=== PATIENT | female | born 1950 | race Caucasian/White ===

== ENCOUNTER 2020-08-01 07:37 | Day surgery (SDC) | payer MEDICARE ==
[~2020-08-01] VITALS: Ht 157.5 cm; Wt 106.6 kg
[~2020-08-01 07:37] MED LIST: ASPERCREME LIDO73 ML TOP; BENICAR5 MG PO; CENTRUM SILVER1 EAC5 PO; CITRATE OF MAG300 ML PO; DOCUSATE SODIU100 MG PO; FENOFIBRATE145 MG PO; FLOVENT DISKUS50 MCG INH; FOSAMAX70 MG PO; GLUCOPHAGE500 MG PO; GLUCOSAMINE H1500 MG PO; HYDROCHLOROTHIA25 MG PO; IBUPROFEN200 M1 PO; LOSARTAN-HCTZ1 EACH PO; MILK OF MA400 MG/5 M PO; PRAVACHOL40 MG PO; PRILOSEC OTC20 MG PO; PRILOSEC20 MG PO; TYLENOL EXTRA500 MG PO; WAL-PROFEN200 MG PO; ZYRTEC10 MG PO
--- NOTE | 2020-08-01 10:26 | NUR ---
08/01/20 1026 Justina Rodney 0947 PT TO PACU AWAKE AND ALERT. 1010 PT TAKING SIPS OF SODA TOLERATES WELL, 1015 PT UP TO BATH VIA WHEELCHAIR, PT DRESSED HERSELF, DISCHARGE INSTRUCTIONS GIVEN TO PT SHE VOICED UNDERSTANDING
--- NOTE | 2020-08-01 11:41 | OR ---
[facility] [address] [place], [place] [address] Signed DATE OF OPERATION: 08/01/2020 SURGEON: Nadya Montes MD PREOPERATIVE DIAGNOSES: 1. Adenomas polyps in 2004. 2. Hyperplastic polyps in 2009. 3. Minimal internal hemorrhoids in 2014. POSTOPERATIVE DIAGNOSES: 1. 5 mm polyp at 22 cm. 2. Minimal internal hemorrhoids. PROCEDURE: Colonoscopy with hot biopsy. ESTIMATED BLOOD LOSS: None. 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 She had adenomatous polyps removed in 2004. She came in 2009 and had hyperplastic polyps removed. She then had a colonoscopy in 2014 revealing minimal internal hemorrhoids. She has no family history of colon cancer or polyps. She has no lower GI complaints currently. In the office, I gave her a pamphlet on colonoscopy and she recalls that test quite readily. She understands there is risk including, but not limited to gas bloating, crampy abdominal pain, bleeding, perforation requiring surgery, and missed diagnosis. She also understands the need for IV conscious sedation. She had expressed understanding and wished to proceed. PROCEDURE NOTE: Fátima was taken into our endoscopy suite and placed in the left lateral decubitus position. She was given IV sedation with 5 mg of Versed and 100 mcg of fentanyl. A digital rectal exam was performed and this was unremarkable. The adult colonoscope was introduced and advanced quite readily around into the cecum itself. Her prep was quite excellent. We could easily see the appendiceal orifice and the ileocecal valve. The scope was slowly withdrawn. We took pictures throughout for photodocumentation. We removed a 5 mm polyp back at 22 cm with hot biopsy forceps. The rectum was unremarkable. There was no diverticulosis. Upon retroflexion of scope, she has very minimal internal hemorrhoid tissue. After this, the gas was suctioned out and Electronically Signed By: NADYA MONTES MD 08/01/20 1141 PATIENT NAME: FÁTIMA CHATMAN OPERATIVE REPORT DATE OF : 48 REPORT #: [id number] PHYSICIAN: NADYA MONTES MD PCP: SAY JIM MD REPORT IS CONFIDENTIAL AND NOT TO BE RELEASED WITHOUT AUTHORIZATION [facility] [address] [place] [id number] Signed colonoscope removed. Fátima tolerated the procedure quite well. RECOMMENDATIONS: I will see Fátima back in my office in 7 to 10 days to review her results. She will stay on the 5-year rotation. Nadya Montes MD ALB/MODL /[id number] cc: MD Nadya Townesnd MD Copies: SAY JIM MD, ANDREW L MD ~ Electronically Signed By: NADYA MONTES MD 08/01/20 1141 PATIENT NAME: FÁTIMA CHATMAN OPERATIVE REPORT DATE OF : 48 REPORT #: [id number] PHYSICIAN: NADYA MONTES MD PCP: SAY JIM MD REPORT IS CONFIDENTIAL AND NOT TO BE RELEASED WITHOUT AUTHORIZATION
--- NOTE | 2020-08-05 15:27 | PATH ---
[facility] [address] [place], [place] [address] Signed SPECIMEN(S): A COLON POLYP AT 22 CM SPECIMEN SOURCE: A. COLON POLYP AT 22 CM CLINICAL HISTORY: Colonoscopy. History of colon polyps. MICROSCOPIC DESCRIPTION: Histologic sections of all submitted blocks are examined by light microscopy. These findings, together with the gross examination, support the pathologic diagnosis. FINAL PATHOLOGIC DIAGNOSIS: Colon, polyp at 22 cm, polypectomy: - Fragments of tubular adenoma. - Negative for high-grade dysplasia or malignancy. NAL:cml:C2NR GROSS DESCRIPTION: The specimen, labeled "LA," and designated on the requisition "colon polyp at 22 cm," is received in formalin and consists of two mayorga soft tissue fragments that measure 0.3 cm in greatest dimension. The specimen is entirely submitted in cassette (A1). AT (under the direct supervision of a pathologist) The Gross Description was prepared using a voice recognition system. The report was reviewed for accuracy; however, sound-alike word errors, addition and/or deletions may occur. If there is any question about this report, please contact Client Services. PERFORMING LABORATORY: The technical component was performed by [employer], [address] [place] [id number] ([employer]: Erika Domínguez MD; CLIA# [id number]). [facility], [address] [address] (CLIA# [id number]). Diagnostician: Tiffany Hope MD Pathologist Electronically Signed 08/05/2020 PATIENT NAME: FÁTIMA CHATMAN PATHOLOGY DATE OF : 48 REPORT #: [id number] PHYSICIAN: LANCE PATHOLOGY PCP: SAY JIM MD REPORT IS CONFIDENTIAL AND NOT TO BE RELEASED WITHOUT AUTHORIZATION [address] [place], [place] [address] Signed Copies: ~ PATIENT NAME: FÁTIMA CHATMAN PATHOLOGY DATE OF : 48 REPORT #: [id number] PHYSICIAN: LANCE PATHOLOGY PCP: SAY JIM MD REPORT IS CONFIDENTIAL AND NOT TO BE RELEASED WITHOUT AUTHORIZATION
== END 2020-08-01 10:21 | disposition home or self-care (01) ==
LOC: OPS 07:37 → DS 07:37 → OPS 09:00 → DS 09:00 → OPS 10:21
PROVIDERS: ATTEND Colon & Rectal Surgery
PROC: 0DBE8ZX Excision of Large Intestine, Via Natural or Artificial Opening Endoscopic, Diagnostic (ICD-10-PCS; principal; 2020-08-01 09:00)
DX: D12.6 Benign neoplasm of colon, unspecified (principal); K64.0 First degree hemorrhoids; I10 Essential (primary) hypertension; J45.909 Unspecified asthma, uncomplicated; E11.9 Type 2 diabetes mellitus without complications; K21.9 Gastro-esophageal reflux disease without esophagitis; M19.90 Unspecified osteoarthritis, unspecified site; E66.9 Obesity, unspecified; Z68.41 Body mass index [BMI] 40.0-44.9, adult; Z86.010 Personal history of colon polyps; Z80.0 Family history of malignant neoplasm of digestive organs; Z79.84 Long term (current) use of oral hypoglycemic drugs; Z88.1 Allergy status to other antibiotic agents; Z88.5 Allergy status to narcotic agent; Z88.8 Allergy status to other drugs, medicaments and biological substances; M81.0 Age-related osteoporosis without current pathological fracture
CPT/HCPCS: 99153; G0500; J2250; J3010; J7121

== ENCOUNTER 2020-08-05 07:29 | Inpatient (IN) | payer OTHER, MEDICARE ==
[~2020-08-05] VITALS: Ht 157.5 cm; Wt 103.0 kg
[~2020-08-05 07:29] MED LIST changes: -ASPERCREME LIDO73 ML TOP; -PRILOSEC20 MG PO; +SALONPAS PAIN118 ML TOP
--- NOTE | 2020-08-05 13:42 | NUR ---
PT ARRIVED IN WHEELCHAIR AND AMBULATED TO BED ON OWN. IN ROOM. RATES PAIN 4\10. STATES IV TYLENOL HELPED .
--- NOTE | 2020-08-05 14:36 | NUR ---
New admit to the floor. Patient alert and oriented x4. Patient NPO at this time. Vital signs are stable. Patient reports abdominal pain and nausea. Patient oriented to room and call light. Patient has no current needs. IV fluids started per order.
--- NOTE | 2020-08-05 15:07 | NUR ---
PT SITTING IN BED. KRISTI FOLEY CHECKING PT IN-PT'S SITTING ON COUCH. PT IS ALERT, ORIENTED AND WAS OCCUPIED WITH KRISTI FOLEY. GAVE BLESSING , WILL CHECK BACK
[2020-08-05] MEDS ORDERED: FENOFIBRATE160 MG PO (15:30)
[2020-08-05] MEDS ORDERED: LOSARTAN POTASS50 MG PO (15:30)
--- NOTE | 2020-08-05 16:10 | CONS ---
[facility] [address] [place], [place] [address] Signed DATE OF CONSULTATION: 08/05/2020 CHIEF COMPLAINT: Left lower quadrant abdominal pain. 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 She had a small 5 mm polyp removed in the sigmoid colon at 22 cm. She talked about having abdominal pain over the weekend. It was a holiday weekend and she did want to come in to the emergency room. She finally decided to come this morning to be evaluated. Her white count is elevated at 19.2 and she does have a temperature of 100.4. She had a CT scan performed and there may be a small perfect air in the sigmoid colon, but there were some air bubbles in a fluid collection involving the small bowel above that area. I was therefore asked to see her as a general surgeon. PAST MEDICAL HISTORY: colonic polyps, internal hemorrhoids, diet-controlled diabetes, hypertension, hyperlipidemia, osteoporosis, asthma, bilateral knee pain, gastroesophageal reflux disease, radicular neuropathy, and obesity. PAST SURGICAL HISTORY: Includes lipoma, tonsils, adenoids, endometrial biopsy, and colonoscopies. SOCIAL HISTORY: She does not smoke or drink. She is a retired registered nurse. She is to Jignesh at [phone]. They live in [place], [place]. Dr. Say Khan is a primary care provider. FAMILY HISTORY: Paternal uncle had colon cancer. Dad had an GA. REVIEW OF SYSTEMS: She had 10 systems reviewed. She told me she has lost 60 pounds and therefore is off the metformin. ALLERGIES: Vistaril, Vicodin, codeine, gemfibrozil, Zetia, aspartame, erythromycin, statins, hydroxyzine, ezetimibe, Demerol, and hydrocodone. MEDICATIONS: 1. Multivitamin. 2. Cetirizine. 3. Fenofibrate. Electronically Signed By: NADYA MONTES MD 08/05/20 1610 PATIENT NAME: FÁTIMA CHATMAN CONSULTATION DATE OF : 48 REPORT #: [id number] PHYSICIAN: NADYA MONTES MD PCP: SAY KHAN MD REPORT IS CONFIDENTIAL AND NOT TO BE RELEASED WITHOUT AUTHORIZATION [facility] [address] [place], [place] [address] Signed 4. Milk of Magnesia. 5. Prilosec. 6. Tylenol. 7. Aspercreme. 8. Ibuprofen. 9. Losartan. 10. Fosamax. PHYSICAL EXAMINATION: VITAL SIGNS: Her blood pressure is 142/98, heart rate 93, respiratory rate 19. Temperature is 100.4. She is 100% on room air. She is 5 feet 2 inches, 104 kg. GENERAL: Fátima is a 70-year-old female, sitting on her hospital bed. LUNGS: Clear to auscultation. HEART: Regular rate and rhythm without murmurs. We had her lay back in the supine position. ABDOMEN: Obese, but soft. She does have some tenderness in the left lower quadrant, but she seemed to have tenderness around the xiphoid area as well and also, in the right lower quadrant. LABORATORY DATA: Her white blood cell count is 19.2, hemoglobin 14, neutrophils 79. Her BUN is 14, creatinine 0.63, glucose 155. Liver function tests are negative. Blood cultures are pending. Her EKGs pending. COVID test will be pending; however, she had negative COVID test several days prior to her colonoscopy. RADIOGRAPHIC STUDIES: A CT scan is reviewed with myself and the radiologist. The sigmoid colon does not appear to be particularly concerning. There may be a small bubble air there next to it and then above that there is small fluid collection with some air bubbles as well, that small bowel is a bit inflamed. 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 It may have sealed by now, but she certainly has some fluid collection, some air bubbles there above that in the small bowel area. I reviewed all this with her and her in detail. She certainly could be taken to surgery and explored and normally a small polypectomy site can simply be oversewn. This gently would not require resection necessary. She told me she is afraid to have surgery because of her weight and her diabetes and she is afraid she will not heal well. She knows that she needed a colostomy. She has quite a thick abdominal wall. She wants to be admitted 1st with some IV antibiotics and made n.p.o. on IV fluids and see how she does. We are going to have to watch her close and if she gets any worse, certainly we would have to take her to surgery. She and her have expressed understanding and wished to proceed as Electronically Signed By: NADYA MONTES MD 08/05/20 2397 PATIENT NAME: FÁTIMA CHATMAN CONSULTATION DATE OF : 48 REPORT #: [id number] PHYSICIAN: NADYA MONTES MD PCP: SAY KHAN MD REPORT IS CONFIDENTIAL AND NOT TO BE RELEASED WITHOUT AUTHORIZATION [facility] [address] [place] [address] Signed above. Nadya Montes MD ALB/MODL /[id number] cc: MD Nadya Townsend MD Chart Filed Incomplete Copies: SAY KHAN MD, ANDREW L MD CHART FILED INCOMPLETE ~ Electronically Signed By: NADYA MONTES MD 08/05/20 1610 PATIENT NAME: COMPAFÁTIMA REED CONSULTATION DATE OF : 48 REPORT #: [id number] PHYSICIAN: NADYA MONTES MD PCP: SAY KHAN MD REPORT IS CONFIDENTIAL AND NOT TO BE RELEASED WITHOUT AUTHORIZATION
--- NOTE | 2020-08-05 18:39 | NUR ---
Dilaudid 0.5mg IVP admin for reports of 7/10 abd pain.
--- NOTE | 2020-08-05 19:30 | NUR ---
SHIFT REPORT FROM NURSE FOLEY. PT IN BED, DROWSY; STATES THAT DILAUDID IS CAUSING SOME DROWSINESS BUT IS HELPING WITH SOME OF THE PAIN IN HER BACK. PT DENIES NEEDS AT THIS TIME. CALL LIGHT WITHIN REACH, PT'S IN ROOM.
--- NOTE | 2020-08-05 20:09 | NUR ---
CALL LIGHT ANSWERED. SBA TO THE BATHROOM AND BACK TO BED. NO OTHER NEEDS AT THIS TIME.
--- NOTE | 2020-08-05 21:45 | NUR ---
IN ROOM FOR ASSESSMENT. PT UP TO TOILET TO VOID. SCANT URINE OUTPUT. TEMP ORALLY IS 101.1; PRN TYLENOL SUPP ADMINISTERED AT THIS TIME. VS OTHERWISE STABLE. BOWEL TONES ACTIVE, LUNG SOUNDS CLEAR, NO EDEMA NOTED. IVF INFUSING PER ORDERS. NO FURTHER NEEDS AT THIS TIME. CALL LIGHT WITHIN REACH.
--- NOTE | 2020-08-05 22:30 | NUR ---
RECHECK TEMP ORALLY 99.5.
--- NOTE | 2020-08-05 23:20 | NUR ---
IV PUMP ALARMING; AIR IN LINE; PROBLEM RESOLVED. PT REPORTS STINGING AT IV SITE. UPON INSPECTION, IV ON R FA HAS INFILTRATED. THIS IV WAS REMOVED AT THIS TIME. PT REPORTS NO FURTHER NEEDS AT THIS TIME. CALL LIGHT WITHIN REACH.
--- NOTE | 2020-08-06 01:40 | NUR ---
CHECKED ON PT; PT APPEARS TO BE SLEEPING. CALL LIGHT WITHIN REACH.
--- NOTE | 2020-08-06 02:10 | NUR ---
IN ROOM FOR 0200 MEDS AND VITALS. PT REPORTS THE URGE TO VOID. SBA TO TOILET. SCANT URINE OUTPUT IN HAT. POTENTIAL FOR URINE MISSING HAT. SECOND HAT PLACED IN TOILET. PT STATES THAT SHE DOES NOT FEEL ESPECIALLY FULL BLADDER AT THIS TIME. THIS RN OFFERED TO BLADDER SCAN PT TO CHECK FOR URINE RETENTION, PT DECLINES AT THIS TIME AND CHOOSES TO "GIVE IT MORE TIME" TO URINATE MORE THERE IS NOT GREAT PRESSURE IN HER BLADDER AT THIS TIME.
--- NOTE | 2020-08-06 05:52 | NUR ---
IN ROOM FOR MORNING MEDS AND ASSESSMENT. PT HAD BEEN UP TO TOILET TO VOID. LIQUID BM NOTED, 80ML CONCENTRATED URINE. URINE OUTPUT IS NOT QS THIS SHIFT; BLADDER SCAN PERFORMED; 40ML IN BLADDER. LUNG SOUNDS CLEAR, BOWEL TONES HYPOACTIVE. NO NEW EDEMA NOTED. PT REQUESTS IV TYLENOL IF POSSIBLE FOR HER CHRONIC BACK PAIN; WILL SPEAK TO DR MONTES ABOUT THIS.
--- NOTE | 2020-08-06 08:26 | NUR ---
IN TO GIVE PT IV MEDICATIONS AND COMPLETE ASSESSMENT. PT UP TO BATHROOM INDEPENDENTLY X2 WHILE IN ROOM, MEDIUM SIZED LOOSE BROWN STOOLS BOTH TIMES. PT URINE OUTPUT HAS DECREASED. NOC SHIFT RN ADELIA ATTEMPTED TO CONTACT DR MONTES WHO IS IN PROCEDURE. PT BACK IN BED RESTING. REPORTS SHE HAS BEEN UP TO BATHROOM FREQUENTLY. CALL LIGHT IN REACH.
--- NOTE | 2020-08-06 09:00 | NUR ---
Spoke with Josephine, a retired RN. States she lives with her spouse who is also retired.She states she is an active thompson. They live in a house with 3 steps and she has not had any trouble going in or out. She drives. Spouse will assist her if needed. She plans on dc to home and her spouse will yard truck driver her, cook, clean etc. She states she spoke with Dr. Sifuentes this am and the plan at this time is to wait a couple of days to see is wbc decrease and if pain improves. She is not wanting surgery if it is not emergent.
--- NOTE | 2020-08-06 10:00 | NUR ---
IV START ATTEMPTED BY THIS RN, UNSUCCESSFUL. PT IS IN NEED OF ADDITIONAL IV SITE. GETTING IVF, CEFEPIME AND SODIUM PHOSPHATE ORDERED. VILMA IN TO ATTEMPT. PO TYLENOL GIVEN FOR LOW BACK PAIN AND HEADACHE. WILL REASSESS. IN ROOM TO VISIT.
--- NOTE | 2020-08-06 11:54 | EKG ---
[facility] [address] [facility] [place] [address] Signed Normal sinus rhythm Nonspecific ST abnormality Abnormal ECG No previous ECGs available Confirmed by NIDIA VOGT DO ([id number]) on 08/06/2020 11:54:16 AM Electronically Signed By: NIDIA VOGT DO 08/06/20 1154 PATIENT NAME: FÁTIMA CHATMAN Electrocardiogram DATE OF : 48 PHYSICIAN: NIDIA VOGT DO REPORT #: [id number] REPORT IS CONFIDENTIAL AND NOT TO BE RELEASED WITHOUT AUTHORIZATION
--- NOTE | 2020-08-06 12:46 | NUR ---
MED REC COMPLETE
--- NOTE | 2020-08-06 14:00 | NUR ---
PUMP ALARMING, IN TO HANG NEW BAG OF D5 LR, CONTINUING TO INFUSING @ 100 MLS/HR. PT NOW VOIDING QUANTITY SUFFICIENT. INDEPENDENT IN ROOM. PT HAS HAD ANOTHER WATERY LOOSE BM, MEDIUM BROWN. BACK TO BED. STATES PAIN IS MINIMAL AT THIS TIME AND IS NOT BOTHERING HER. CALL LIGHT IN REACH.
--- NOTE | 2020-08-06 14:05 | NUR ---
PATIENT UP TO BATHROOM AND BACK TO BED, IND. VITALS AND I&O'S CHARTED. CALL LIGHT IN REACH. NO FURTHER NEEDS AT THIS TIME.
--- NOTE | 2020-08-06 14:30 | NUR ---
PT IS ASLEEP KRISTI MASSEY REQUESTED I LET PT REST. SHE HAS HAD A ROUGH AM. WILL FOLLOW NEEDED
--- NOTE | 2020-08-06 19:37 | NUR ---
IN ROOM FOR REPORT, PT IS RESTING IN BED AWAKE. SHE DENIES NEEDS AT THIS TIME. CALL LIGHT IS CLOSE AND IV IS INFUSING FINE.
--- NOTE | 2020-08-06 21:13 | NUR ---
IN ROOM TO ASSESS PT AND ADMINSITER MEDICATIONS. PT REPORTS PAIN 4/10 WHICH IS BASELINE FOR HER BACK PAIN. SHE CONTINUES TO HAVE LOOSE STOOL WHICH MAKES IT DIFFICULT TO MEASURE UO. SHE HAS VOIDED TWICE SINCE 7PM. PT DENIES FURTHER NEEDS AT THIS TIME. CALL LIGHT IS CLOSE.
--- NOTE | 2020-08-06 23:06 | NUR ---
PT CALLED FOR WARM BLANKET, SHE DENIES FURTHER NEEDS. CALL LIGHT IS CLOSE.
--- NOTE | 2020-08-07 00:32 | NUR ---
NEW BAG OF IV FLUIDS NOW INFUSING. PT DENIES NEEDS, CALL LIGHT IS CLOSE.
--- NOTE | 2020-08-07 00:52 | NUR ---
RECEIVED REPORT FROM JAMARI BERRY. PATIENT IS RESTING IN BED WITH EYES CLOSED, RR 17. CALL LIGHT IN REACH.
--- NOTE | 2020-08-07 02:51 | NUR ---
PATIENTS SCHEDULED MEDICATIONS GIVEN PER ORDER. PATIENT REPORTS 6/10 PAIN IN HER ABD AND BACK. PATIENT GIVEN PRN TYLENOL PER REQUEST. PATIENT STATED SHE HAS BEEN UP X2 TO THE RESTROOM AND HAS PASSED A LOT OF GAS. PATIENT REPORTS GAS PAIN IN HER ABD. PATIENT DENIES ANY NAUSEA. NO FURTHER NEEDS NOTED. CALL LIGHT IN REACH.
--- NOTE | 2020-08-07 03:59 | NUR ---
PT CALLED, ASKED TO HAS THE BSC PLACED NEAR BEDSIDE TO MINIMIZE NEED TO MOVE IV POLE, PT IS ADLIB IN AND HAS NO FURTHER NEEDS AT THIS TIME
--- NOTE | 2020-08-07 06:53 | NUR ---
PATIENTS VITALS TAKEN AND RECORDED. INTAKE AND OUPUT RECORDED. LEFT UPPER IV ARM INFILTRATED. PATIENT IS RESTING IN BED. PATIENT DENIES ANY PAIN OR NAUSEA. PATIENT DENIES ANY NEEDS. CALL LIGHT IN REACH.
--- NOTE | 2020-08-07 07:30 | NUR ---
LEFT HAND IV INFILTRATED. PICC CONSULT PUT IN BY DR. MONTES PT HAS HAD SEVERAL IVS INFILTRATE SINCE ADMISSION. ZAK ROCKET ASSEMBLY OPERATOR IN TO ATTEMPT NEW IV, ASHLEY. OFFICE MACHINE INSPECTOR NOTIFIED TO ATTEMPT IV FOR TIME BEING UNTIL PICC LINE IS ESTABLISHED. PT STATES ABD/BACK PAIN IS MINIMAL RIGHT NOW. HAS CONTINUED TO BE UP TO BATHROOM FREQUENTLY FOR SMALL LOOSE STOOLS, STATES "IT'S MOSTLY GAS". OOB AND UP IN CHAIR THIS MORNINGS. STATES SHE DID NOT SLEEP WELL LAST NIGHT. CLEAR LIQUID TRAY ORDERED. CALL LIGHT IN REACH.
--- NOTE | 2020-08-07 09:34 | NUR ---
PATIENT UP IN CHAIR, VITALS AND I&OS CHARTED. CALL LIGHT IN WITHIN REACH
--- NOTE | 2020-08-07 10:30 | NUR ---
NEO FRONT OFFICE SUPERVISOR IN TO START IV, SUCCESSFUL ATTEMPT IN R. HAND. IV CEFEPIME INFUSING AND SCHEDULED IV MEDICATIONS GIVEN. PT REPORTING INCREASED BACK PAIN GETTING UP AND DOWN TO BATHROOM. PO TYLENOL GIVEN. PT OOB UP IN CHAIR. NO, BOWEL TONES HYPOACTIVE. LUNG SOUNDS CLEAR. NO OTHER NEEDS AT THIS TIME. IN ROOM. CALL LIGHT IN REACH.
--- NOTE | 2020-08-07 11:52 | NUR ---
PATIENT WAS ADMITTED AT HIGH RISK FOR MALNUTRITION DUE TO RECENT WEIGHT LOSS. SHE STATES SHE HAS LOST 65 LBS ON HER OWN DOING THE KETO DIET FOR THE PAST 1-1.5 YEARS. SHE IS NOW OFF OF METFORMIN. CURRENTLY SHE IS ONLY ON CLEAR LIQUIDS - THIS IS THE 3RD DAY. SHE HAS AN ALLERGY TO ASPARTAME. SHE IS HOPING TO AVOID SURGERY. SHE PREFERS MALTESE BREAKFAST TEA INSTEAD OF DASHA ORANGE PEKOE TEA. WILL CHECK AND SEE IF WE HAVE MALTESE BREAKFAST TEA IN THE KITCHEN. PATIENT IS NOT AT HIGH RISK FOR MALNUTRITION AT THIS TIME. HOPEFULLY HER DIET WILL BE ADVANCED TOMORROW.
--- NOTE | 2020-08-07 13:42 | NUR ---
PICC INSERTION NOTE: ASKED BY DR. MONTES TO ASSESS PATIENT FOR POTENTIAL PICC INSERTION DUE TO POOR IV ACCESS. AFTER REVIEWING THE CHART AND INTERVIEWING THE PATIENT, NO ABSOLUTE CONTRAINDICATIONS WERE IDENTIFIED. PATIENT WAS ABLE TO SIGN THE CONSENT FORM AND ASK QUESTIONS ABOUT PICC INSERTION. PATIENT'S LEFT ARM WAS EVALUATED FIRST USING THE SITE RITE U/S 8, AND THE BASILIC AND CEPHALIC WERE BOTH IDENTIFIED POTENTIAL SITE. USING A 4 FR CATHETER AND THE BASILIC VEIN, IT IS ESTIMATED THAT THE CATHETER WOULD ONLY TAKE UP 25% OF THE VEIN DIAMETER. AFTER FOLLOWING [facility] [place] RECOMMONDED PROCEDURE FOR STERILE PREP, THE PATIENT'S LEFT ARM WAS PREPPED. PATIENT'S BASILIC VEIN WAS DIFFICULT TO ACCESS, BUT WAS ABLE TO OBTAIN IV ACCESS UPON THE 3RD ATTEMPT AND MOVING PROXIMAL UP THE ARM 3-4 CM. GUIDEWIRE WAS THEN ADVANCED INTO THE VEIN WITHOUT DIFFICULTY OR RESISTANCE. THE INTRODUCER WAS THEN ADVANCED. PATIENT WAS MORE PAINFUL THAN I WOULD HAVE LIKED, AND UTILIZATION OF LIDOCAINE WAS OPTIMIZED. PICC LINE WAS THEN ADVANCED THROUGH THE INTRODUCER AND THREADED EASILY. [employer] TIP MAGNET VERIFICATION SYSTEM WAS UTILIZED. THE PICC LINE ORIGINALLY ACTED THOUGH IT WAS TURNING UP TOWARDS HER NECK VEINS, PATIENT WAS ABLE TO HEAR THE "SWOOSH" NOISE OF A SALINE FLUSH. PICC LINE RE-ADVANCED AND THEN TURNED INTO CENTRAL VASCULATURE. CHEST XRAY WAS TAKEN WHICH SHOWED IN IDEAL POSITION BUT MAYBE A LITTLE HIGH. WIRE WAS THEN REMOVED AND FINAL DRESSING PLACED, AND ANOTHER CHEST XRAY WAS TAKEN. BOTH LUMENS OF THE 4 FR PICC WERE FLUSHING WELL AND ASPIRATING BLOOD. EDUCATION MATERIAL WAS LEFT WITH PATIENT ALSO ENCOURAGED TO ASK QUESTIONS AT ANY TIME. 0 CM EXPOSED ON PICC. ARM CIRCUMFERENCE WAS 38 CM. REPORT GIVEN TO KRISTI MASSEY CARING FOR THIS PATIENT.
--- NOTE | 2020-08-07 14:18 | NUR ---
PATIENT IN BED, VITALS AND I&OS CHARTED. CALL LIGHT IN REACH
--- NOTE | 2020-08-07 16:00 | NUR ---
CEFEPIME INFUSING CONCURRENTLY W/ LR IN RIGHT HAND IV. K PHOS INFUSING INTO PICC LINE. BRISK BLOOD RETURN NOTED IN BOTH PORTS ON PICC LINE. PT BACK TO BED FROM CHAIR. UP FREQUENTLY IN ROOM. NOT WANTING TO AMBULATE TOO FAR FROM ROOM FOR FEAR OF NEEDING TO USE TOILET IN A HURRY. FREQUENT USE OF IS DEVICE. CALL LIGHT IN REACH. IN ROOM. BOWEL TONES ARE ACTIVE IN ALL QUADRANTS. NO OTHER NEEDS AT THIS TIME.
--- NOTE | 2020-08-07 19:52 | NUR ---
RECEIVED REPORT FORM DAY SHIFT RN. PATIENT IS RESTING IN BED. PATIENT REPORTS 5/10 PAIN IN HER LOWER BACK. PRN TYLENOL GIVEN FOR PAIN PER ORDER. PATIENT DAVEY ANY FURTHER NEEDS. CALL LIGHT IN REACH.
--- NOTE | 2020-08-07 21:45 | NUR ---
PATIENT IS RESTING IN BED. PATIENT DENIES ANY NAUSEA. PATIENT REPORTS 2/10 PAIN IN HER BACK. PATIENT DENIES THE NEED FOR PAIN MEDICATION AT THIS TIME. PATIENT ASSESMENT COMPLETED. PATIENTS VITALS TAKEN AND RECORDED. INTAKE AND OUPUT RECORDED. PATIENTS SCHEDULED MEDICATIONS GIVEN PER ORDER. IV INFUSSING IN PICC LINE. PATIENT IS ON RA. PATIENTS ABD REMAINS DISTENDED, SOFT BUT TENDER IN PLACES. PATIENT DENIES ANY NEEDS. CALL LIGHT IN REACH.
--- NOTE | 2020-08-07 23:04 | NUR ---
PATIENT IS RESTING IN BED. PATIENT DENIES ANY NEEDS AT THIS TIME. IV ABX INFUSING PER ORDER. NO NEEDS NOTED. CALL LIGHT IN REACH.
--- NOTE | 2020-08-08 00:54 | NUR ---
PATIENT IS UP SITTING ON THE EDGE OF THE BED. PATIENT REPORTS HER STOMACH IS "GASSY". PATIENT GIVEN SEVEN UP PER REQUEST. PATIENT DENIES ANY NAUSEA. CALL LIGHT IN REACH.
--- NOTE | 2020-08-08 02:50 | NUR ---
PATIENT HAS RETURNED TO BED AFTER HAVING LOOSE BM. PATIENTS HAT EMPTIED. PATIENT DENIES ANY NEEDS. CALL LIGHT IN REACH.
--- NOTE | 2020-08-08 04:41 | NUR ---
PATIENTS MORNING MEDICATIONS GIVEN PER ORDER. PATIENT REPORTS A METALLIC TASTE WHILE THE CEFEPIME IS INFUSING. PATIENT ALSO REPORTS INCREASED STOOL WHILE CEFEPIPME IS INFUSING. PATIENT REPORTS NAUSEA. PATIENT GIVEN PRN NAUSEA MEDICATION PER ORDER. PATIENT GIVEN PRN TYLENOL FOR 5/10 BACK PAIN. NO FURTHER NEEDS NOTED. CALL LIGHT IN REACH.
--- NOTE | 2020-08-08 05:31 | NUR ---
LABS DRAWN FROM PICC LINE. AND SENT TO LAB. IV INFUSING AND IV ABX INFUSING PER ORDER. NO FURTHER NEEDS NOTED. CALL LIGHT IN REACH.
--- NOTE | 2020-08-08 07:35 | NUR ---
Spoke with Dr. Sifuentes this am, pt maybe able to dc tomorrow. He will let me know.
--- NOTE | 2020-08-08 08:52 | NUR ---
CEFEPIME INFUSION COMPLETE. K PHOS, D5LR AND MAGNESIUM INFUSING INTO PICC. LOVENOX INJ GIVEN. PT TOLERATING FULL LIQUID DIET MODERATELY WELL. UP TO BSC TO HAVE BM, STOOLS STILL LOOSE. NO ACUTE CHANGES. PASSING GAS AND BOWEL TONES HYPERACTIVE THIS MORNING. AMBULATING IN ROOM FREQUENTLY. STATES SHE WILL AMBULATE IN [place] WHEN HER COMES TO VISIT AT 10 AM. CALL LIGHT IN REACH. NO OTHER NEED AT THIS TIME.
--- NOTE | 2020-08-08 11:15 | NUR ---
PT UP AMBULATING THE HALLS WITH SEVERAL TIMES THIS MORNING. TOLERATING WELL.
--- NOTE | 2020-08-08 12:00 | NUR ---
Spoke with Josephine. She cont. to plan to dc to home tomorrow with her spouse. Denies needs, spouse will drive her and she will pick her meds up at [facility] on the way home, she has rescheduled her covid shot.
--- NOTE | 2020-08-08 13:40 | NUR ---
IN TO HANG IV FLAGYL. PT STILL REPORTING FREQUENT LOOSE STOOLS. UP TO BATHROOM SEVERAL TIMES. STOOLS WATERY BROWN, YELLOW. DENIES PAIN AFTER PO TYLENOL. RESTING BACK IN BED.
--- NOTE | 2020-08-08 18:30 | NUR ---
PT AMBULATING HALLS FREQUENTLY THIS AFTERNOON. CONTINUES TO HAVE EPISODES OF FREQUENT LIQUID STOOLS, STATES 'IT COMES AND GOES'. TOLERATING FULL LIQUID DIET WELL. REPORTS MINIMAL BACK PAIN AFTER TYLENOL. BACK IN BED TO REST. CALL LIGHT IN REACH. INDEPENDENT IN ROOM.
--- NOTE | 2020-08-08 19:51 | NUR ---
PT'S IV PUMP WAS BEEPING, IT IS NOW INFUSING FINE. PT DENIES NEEDS AT THIS TIME. CALL LIGHT IS CLOSE.
--- NOTE | 2020-08-08 19:58 | NUR ---
RECEIVED REPORT FROM DAY SHIFT RN. PATIENT IS RESTING IN BED WATCHING TV. NO NEEDS NOTED. CALL LIGHT IN REACH.
--- NOTE | 2020-08-08 22:05 | NUR ---
PATIENTS IV ABX INFUSING PER ORDER. PATIENT GIVEN PRN TYLENOL FOR 5/10 PAIN IN HER BACK. PATIENT IS SITTING UP AT THE EDGE OF THE BED READING A BOOK. NO FURTHER NEEDS NOTED. CALL LIGHT IN REACH.
--- NOTE | 2020-08-08 22:26 | NUR ---
PATIENT ASSESMENT COMPLETED. PATIENTS VITALS TAKEN AND RECORDED. INTAKE AN OUPUT RECORDED. PATIENTS EVENING MEDICATIONS GIVEN PER ORDER. PATIENTS IV INFUSING PER ORDER. PATIENT DENIES ANY NAUSEA OR ABD PAIN. PATIENT REPORTS 5/10 BACK PAIN. PATIENT DENIES THE NEED FOR ANY PAIN MEDICATION AT THIS TIME. PATIENT STATED "MY ABD IS A LOT SOFTER" DISTENTION IS NOW MILD AND ABD TENDERNESS APPEARS TO BE RESOLVING. PATIENT DENIES ANY NEEDS AT THIS TIME. CALL LIGHT IN REACH.
--- NOTE | 2020-08-08 23:46 | NUR ---
PATIENT IS RESTING IN BED WITH EYES CLOSED, RR 18. CALL LIGHT IN REACH.
--- NOTE | 2020-08-09 03:02 | NUR ---
PATIENTS IV WAS ALERTING STAFF. IV INFUSING PER ORDER. PATIENT AWOKE BRIEFLY. PATIENT DENIES ANY PAIN OR NAUSEA NO NEEDS NOTED. CALL LIGHT IN REACH.
--- NOTE | 2020-08-09 06:00 | NUR ---
PATIENTS MORNING MEDICATIONS GIVEN PER ORDER. PATIENT DENIES ANY PAIN OR NAUSEA. PATIENTS VITALS TAKEN AND RECORDED. INTAKE AND OUPUT RECORDED. PATIENTS BLOOD RAWN FROM PICC FOR LABS. PATIENT TOLERATED ACTIVITY WELL. NO FURTHER NEEDS NOTED. CALL LIGHT IN REACH.
--- NOTE | 2020-08-09 06:01 | NUR ---
PATIENT RESTED WELL FOR PART OF THE SHIFT. PATIENT IS ON A FULL LIQUID DIET AND TOLERATING IT WELL. NO NAUSEA NOTED. PATIENT HAS DENIED ABD PAIN. PATIENT HAS ACTIVE BOWEL TONES. PATIENT HAD X2 SMALL SOFT BMS. PATIENT ENCOURAGE TO COMPLETE IS. PATIENT IS ON RA. PATIENT HAS SCDS WHILE IN BED. PATIENT HAS L ARM PICC LINE THAT IS INFUSING IV FLUIDS PER ORDER. PICC LINE HAS GOOD BLOOD RETURN AND FLUSHES WELL. PATIENT HAS MILD ABD DISTENTION. PATIENT REPORTS PASSING GAS. PATIENT IS AAOX4.
--- NOTE | 2020-08-09 07:20 | NUR ---
Report received from night cleaner RN. Pt resting in bed, awake and alert. IVF infusing WNL. States no needs at this time, will continue plan of care. Call light in reach
--- NOTE | 2020-08-09 07:55 | NUR ---
Scheduled medications administered. Assessment complete, plan of care reviewed, pt agreeable. IVF infusing WNL. PICC WNL. Pt reports no needs at this time
--- NOTE | 2020-08-09 09:30 | NUR ---
Spoke with Josephine. She is hoping to go home today. Denies needs, plans on dc to her home with her spouse. She is awaiting Dr. Sifuentes to finish surgery to visit her.
--- NOTE | 2020-08-09 11:45 | NUR ---
Rounded on patient, resting in bed. Lunch on bedside table, pt states no issues and no needs. Pt states would like to nap, allowed to rest at this time. Call light in reach
--- NOTE | 2020-08-09 12:02 | NUR ---
PT ALERT, ORIENTED AND SUPPORTED BY HER . 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 PT IS DOING MUCH BETTER, HOPES TO DC TODAY.LEFT G.POST AND BLESSING
--- NOTE | 2020-08-09 12:04 | NUR ---
WHEN I ASKED PATIENT IF SHE WOULD LIKE TO TAKE A SHOWER SHE TOLD ME THAT SHE ALREADY DID HER OWN COMPLETE BED BATH AND AM CARE.
--- NOTE | 2020-08-09 12:07 | NUR ---
WHEN I WENT IN TO HER VITALS PATIENT TOLD ME SHE ALREADY DID HER OWN BED BATH. SHE ALSO WHAT TO WAIT TO TAKE A SHOWER WHEN SHE GETS TO GO HOME SOMETIME TODAY.
[2020-08-09] MEDS ORDERED: AUGMENTIN 875-1 EACH PO (13:05)
[2020-08-09] MEDS ORDERED: FLAGYL500 MG PO (13:06)
--- NOTE | 2020-08-09 13:30 | NUR ---
PICC DISCONTINUED, 45 CM AT TIP, CATHETER INTACT. PT TOLERATED WELL. PRESSURE DRESSING APPLIED. PT EDUCATED REGARDING REMOVAL AND SITE CARE. PT RESTING IN BED, CALL LIGHT IN REACH. WILL CONT TO MONITOR
--- NOTE | 2020-08-09 14:36 | NUR ---
pt discharged to home via wheelchair with belongings in hand. Pt education provided, all questions answered. Pt to drive pt home. No further requests, F/U appointment scheduled and verified with pt.
--- NOTE | 2020-08-09 16:46 | DS ---
[facility] [address], [place] [address] Signed ADMISSION DATE: 08/05/2020 DISCHARGE DATE: 08/09/2020 FINAL DIAGNOSES: Sigmoid colon perforation at 22 cm, status post hot biopsy polypectomy. PROCEDURES: CT scan of abdomen and pelvis. 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 She had a small adenomatous polyp removed at 22 cm in the sigmoid colon with hot biopsy forceps. She had developed pain in the left lower quadrant, but stayed home over the holiday weekend. She finally presented on Wednesday to the emergency room. She certainly was tender, but more so in the subxiphoid and right upper quadrant areas. Less so in the left lower quadrant. White count was elevated. A CT scan showed a small bubble air next to the sigmoid colon, but then a small fluid collection with some air bubbles underneath the small bowel just above this area. Of course, the small bowel was secondarily inflamed. I have been asked to see her as a general surgeon building energy consultant and the fact that I did her colonoscopy. HOSPITAL COURSE: I met with Fátima and her , Sandra in the ER. We had a long discussion regarding her current findings. It had been four days and she was not tremendously ill. Fátima wanted to proceed on a conservative basis. She was admitted with cefepime and Flagyl. She actually did very well. Within 24 hours or so, her fevers have abated and her white count returned to normal. She felt that cefepime was causing a taste in her mouth and resulting in diarrhea. We switched over the Zosyn and Flagyl and she has tolerated that very nicely. She is up to a soft low-fiber diet. Her stools started to become a little more formed. All the abdominal pain is completely gone. She has not had any fever in three days. Abdomen is obese, but completely soft in that no tenderness whatsoever. We did have to place a PICC line for Fátima due to her lack of peripheral IV access while she was here. That will be discontinued just prior to discharge to home. Given her progress in, to go home today and to continue on Augmentin and Flagyl. DISCHARGE PLANS AND MEDICATIONS: Fátima will be discharged to home with Augmentin 875 mg one tablet p.o. b.i.d. for 10 days. We will give Flagyl 500 mg one tablet p.o. t.i.d. for 10 days. Consequently, she will have 15 days of antibiotics. She can resume all her chronic medications at home including milk of magnesia p.r.n. for constipation. She is welcome to use ibuprofen or Tylenol for pain. She generally avoids narcotics. She will continue on a soft Electronically Signed By: NADYA MONTES MD 08/09/20 1646 PATIENT NAME: FÁTIMA CHATMAN DISCHARGE SUMMARY DATE OF : 48 REPORT #: [id number] PHYSICIAN: NADYA MONTES MD PCP: SAY JIM MD REPORT IS CONFIDENTIAL AND NOT TO BE RELEASED WITHOUT AUTHORIZATION [facility] [address] [place] [id number] Signed low-fiber diet. She can perform her activities of daily living including walking up and down stairs and showering and bathing as usual. She should not engage in any heavy pushing, pulling, or lifting over about 20 pounds. If she would have resumption of her symptoms and pain, she needs to call me at the office immediately or come back to the emergency room. Otherwise, we are going to see Fátima in the office in about 7 to 10 days for followup. She has expressed understanding and agrees to above plan. Nadya Montes MD ALB/MODL /[id number] cc: MD Nadya Townsend MD Copies: SAY JIM MD, ANDREW L MD ~ Electronically Signed By: NADYA MONTES MD 08/09/20 1646 PATIENT NAME: FÁTIMA CHATMAN DISCHARGE SUMMARY DATE OF : 48 REPORT #: [id number] PHYSICIAN: NADYA MONTES MD PCP: SAY JIM MD REPORT IS CONFIDENTIAL AND NOT TO BE RELEASED WITHOUT AUTHORIZATION
== END 2020-08-09 14:36 | disposition home or self-care (01) | DRG 920 ==
LOC: ED 07:29 → MS 12:56
PROVIDERS: ADMIT Colon & Rectal Surgery; ATTEND Colon & Rectal Surgery
PROC: 02HV33Z Insertion of Infusion Device into Superior Vena Cava, Percutaneous Approach (ICD-10-PCS; principal; 2020-08-07 12:11)
DX: K91.71 Accidental puncture and laceration of a digestive system organ or structure during a digestive system procedure (principal); K52.1 Toxic gastroenteritis and colitis; Z68.41 Body mass index [BMI] 40.0-44.9, adult; Z20.822 Contact with and (suspected) exposure to COVID-19; E11.9 Type 2 diabetes mellitus without complications; I10 Essential (primary) hypertension; E78.5 Hyperlipidemia, unspecified; M81.0 Age-related osteoporosis without current pathological fracture; J45.909 Unspecified asthma, uncomplicated; K21.9 Gastro-esophageal reflux disease without esophagitis; E66.9 Obesity, unspecified; M25.562 Pain in left knee; E87.6 Hypokalemia; E83.39 Other disorders of phosphorus metabolism; E83.42 Hypomagnesemia; M25.561 Pain in right knee; M54.10 Radiculopathy, site unspecified; Y84.8 Other medical procedures as the cause of abnormal reaction of the patient, or of later complication, without mention of misadventure at the time of the procedure; T36.1X5A Adverse effect of cephalosporins and other beta-lactam antibiotics, initial encounter; Y73.0 Diagnostic and monitoring gastroenterology and urology devices associated with adverse incidents; Y92.239 Unspecified place in hospital as the place of occurrence of the external cause; Z86.010 Personal history of colon polyps; Z88.8 Allergy status to other drugs, medicaments and biological substances; Z88.5 Allergy status to narcotic agent; Z88.1 Allergy status to other antibiotic agents; Z79.899 Other long term (current) drug therapy; Z79.83 Long term (current) use of bisphosphonates
CPT/HCPCS: 36415; 36569; 71045; 74022; 74177; 80048; 80053; 81001; 83605; 83690; 83735; 84100; 84134; 85025; 87040; 93005; 93010; 94760; 96375; 99285-25; C1751; C9113; C9803; J0131; J0692; J1170; J1650; J2270; J2405; J2543; J3475; J7030; J7060; J7121; Q9967; U0003

== ENCOUNTER 2021-03-02 07:53 | Observation (INO) | payer MEDICARE ==
[~2021-03-02] VITALS: Ht 157.5 cm; Wt 101.1 kg
[~2021-03-02 07:53] MED LIST changes: +AUGMENTIN 875-1 EACH PO; +FENOFIBRATE160 MG PO; +FLAGYL500 MG PO; +LOSARTAN POTASS50 MG PO
--- NOTE | 2021-03-02 14:20 | NUR ---
Pt arrives to med/surg unit via stretcher with at bedside. Admission and assessment complete. VSS. Pt ambulates to bathroom with SBA to void. Pt reports slight but tolerable pain in RUQ (2/10) and denies need for PRN medication at this time. IVF infusing WNL. Warm blankets provided, oriented to call light system, no needs at this time.
[2021-03-02] MEDS ORDERED: CALCIUM + VITA1 EACH PO (14:28)
--- NOTE | 2021-03-02 14:29 | NUR ---
medications reconciled using pharmacy records and patient interview
--- NOTE | 2021-03-02 15:15 | NUR ---
Rounded on patient who denies pain, nausea. She states she is cold, warm blankets provided. IVF infusing WNL. Oral swabs provided at bedside. No other needs at this time, call light in reach.
--- NOTE | 2021-03-02 20:20 | NUR ---
PATIENT CONTINUES TO HAVE SOME NAUSEA, BUT DOES NOT WANT MEDICATED AT THIS TIME, DENIES THE NEED FOR ANYMORE PAIN MEDICATION AT THIS TIME. PM ASSESSMENT COMPLETE AND PATIENT IS ESSENTIALLY INDEPENDENT IN THE ROOM. PATIENT REMAINS NPO. WILL CALL TO SEE IF PATIENT CAN HAVE ICE CHIPS UNTIL MIDNIGHT AND SEE WHAT THE PLAN IS FOR SURGERY TOMORROW. CALL LIGHT IS IN REACH NO OTHER CARE NEEDS AT THIS TIME.
--- NOTE | 2021-03-02 20:37 | NUR ---
CALLED TO SEE IF PATIENT COULD HAVE ICE CHIPS SHE HAS NO EATEN IN A COUPLE DAYS. SAID ICE CHIPS ARE OK FOR NOW AND THAT HE IS ON HIS WAY UP TO THE HOSPITAL TO SEE THE PATIENT. ICE CHIPS GIVEN TO THE PATIENT AND PATIENT IS PAIN FREE AT THIS TIME. CALL LIGHT IS IN REACH.
--- NOTE | 2021-03-02 22:15 | NUR ---
PATIENT GIVEN TYLENOL FOR 5/10 LOW CHRONIC BACK PAIN. PATIENT HAD NO OTHER REQUESTS AT THIS TIME. CALL LIGHT IS IN REACH.
--- NOTE | 2021-03-02 22:32 | NUR ---
LR BOLUS STARTED BIRDIE WAS JUST ORDERED BY . 4MG IV ZOFRAN GIVEN FOR NAUSEA AND ANTIBIOTC STARTED. PATIENT HAS NO OTHER NEEDS AT THIS TIME. CALL LIGHT IS IN REACH.
--- NOTE | 2021-03-02 22:34 | NUR ---
PATIENT PLACED ON ORDERED TELE AND PULSE OX. HR=IN THE 80'S WITH O2 SAT OF 95% ON RA. PATIENT HAS NO OTHER NEEDS AT THIS TIME. CALL LIGHT IS IN REACH.
--- NOTE | 2021-03-02 23:06 | NUR ---
PATIENT'S PM IV ANTIBIOTIC HAS INFUSED AND NAUSEA IS IMPROVING AFTER IV ZOFRAN. PATIENT HAS SIGNED SURGICAL CONSENT WITNESSED BY THIS RN. PATIENT'S DECLINES PUTTING ON SCD'S UNTIL THE MORNING. PATIENT'S CALL LIGHT IS IN REACH. PATIENT HAS VOIDED AGAIN, BUT MISSED THE HAT IN THE TOILET. CALL LIGHT IS IN REACH AND PATIENT HAS NO OTHER CARE NEEDS AT THIS TIME.
--- NOTE | 2021-03-03 01:35 | NUR ---
PATIENT'S RUQ AND EPIGASTRIC PAIN HAS RETURNED AT 7/10 HEAVY ACHE. PATIENT PREMEDICATED WITH 8MG IV ZOFRAN SHE WAS EXTREMELY NAUSEATED AFTER THE LST MORPHINE. 30MG TORADOL SIVP GIVEN FOLLOWED BY 4MG SIVP MORPHINE. PATIENT LAYING DOWN TRYING TO RELAX. WILL CHECK BACK WITH PATIENT SHORTLY. CALL LIGHT IS IN REACH.
--- NOTE | 2021-03-03 02:32 | NUR ---
PATIENT'S RUQ AND BACK PAIN IS GONE, JUST SOME EPIGASTRIC DISCOMFORT LEFT. PATIENT DID NO GET NAUSEATED FROM THE 4MG SIVP MORPHINE, SO PREMEDICATING WITH ZOFRAN WORKED. PATIENT RESTING QUIETLY ON HER LEFT SIDE IN BED NOW AND PATIENT FELT A BIT COLD SO 2 WARM BLANKETS WERE GIVEN. CALL LIGHT IS IN REACH.
--- NOTE | 2021-03-03 04:30 | NUR ---
PATIENT IS RESTING QUIETLY WITH A LITE SNORE, RESPIRATIONS ARE REGULAR AND EVEN, EYES CLOSED, ON HER LEFT SIDE, O2 SATS=93% ON RA, AND HR=80'S PER TELE. PATIENT HAS NO CURRENT CARE NEEDS. CALL LIGHT IS IN REACH.
--- NOTE | 2021-03-03 05:47 | NUR ---
PATIENT HAS BEEN ABLE TO GET A FEW HOURS SLEEP. AM VS AND I+O DONE ALONG WITH AM ASSESSMENT. PATIENT DENIES PAIN AND NAUSEA AT THIS TIME. RT HERE TO DO PREOP EKG AND LAB JUST LEFT FOR AM LABS. PATIENT REMAINS NPO. AM ANTIBIOTICS GOING. PATIENT HAS NO OTHER CARE NEEDS AT THIS TIME. CALL LIGHT IS IN REACH.
--- NOTE | 2021-03-03 07:05 | NUR ---
Report received from Goran BERRY. Pt resting in bed, tele #[address], sinus rhythym, IVF infusing WNL. No needs at this time, will continue plan of care
--- NOTE | 2021-03-03 08:00 | NUR ---
PT AWAKE AND SITTING ON EDGE OF BED. PT REFUSES CHAIR. WHITE BOARD UPDATED, CALL LIGHT WITHIN REACH. NO FURTHER NEEDS AT THIS TIME.
--- NOTE | 2021-03-03 08:50 | NUR ---
Scheduled medications administered. Pt denies pain or nausea at this time. This RN asks patient again if she would like to shower, she declines. She states she would like to brush her teeth, change her gown, this RN assists. She then states she "cannot take a shower with her telemetry on so needs it off first". This RN clarifies if patient would or would not like a shower and she states no. She reports wanting to take her gown off and then states she will wait until her presurgical wipedown. She then takes her gown off and puts it back on. This RN asks patient if she has other needs and she says no. Call light in reach, will check in shortly.
--- NOTE | 2021-03-03 09:30 | NUR ---
It was my pleasure to round with Josephine ibarra moring and visit with her regarding her care while here at [facility]. Juani states that he care has been fine. She states that her pain has been well controlled, and adds "Goran went out of his way last night to help get my pain under control." She feels that her room has been kept clean, and she answers to the affirmative when asked if the nurses are explaining her medications, and the side effects of the medications to her. Josephine explained that she does have help at home when she goes home after her surgery. She has no concerns about help at home or being able to acquire medications, food, etc. She also states that Dr. Malik has been in to see her this morning, she explained to me that she understood that she would most likely spend the night in the hospital again tonight since she was not going to surgery until around 1300 today. She denies questions or concerns, and expresses no needs at this time.
--- NOTE | 2021-03-03 09:49 | NUR ---
PATIENT SITTING ON EDGE OF BED TALKING ON PHONE. VITALS AND I&O'S CHARTED. CALL LIGHT IN REACH. NO FURTHER NEEDS AT THIS TIME.
--- NOTE | 2021-03-03 10:20 | NUR ---
Call light answered, pt states feeling nauseated and painful at 4/10 in RUQ. IV toradol and zofran administered. Pt is restless and has difficulty giving clear answers to this RN's questions. Allowed to rest at this time. Call light in reach, Jignesh at bedside.
--- NOTE | 2021-03-03 11:02 | NUR ---
Call light answered, IV pump alarming, error resolved, no further needs
--- NOTE | 2021-03-03 15:40 | NUR ---
03/03/21 1540 Jhoana Boston 1520 PT ARRIVED IN PACU NON RESPONSIVE TO NOXIOUS STIMULI WITH OPA IN PLACE. BLOOD SUGAR 151 ON ARRIVAL. 1537 PT REACTIVE. OPA REMOVED. 1540 RESTING. REU.
--- NOTE | 2021-03-03 16:20 | NUR ---
Pt returns from surgery via stretcher. Drowsy but oriented. On room air, SPO2 94%. VSS. Lap sites x3 to ABD C/D/I with gauze/tape. PREETI to RLQ with serosanguinous drainage. IVF infusing WNL. Pt states tolerable pain/nausea level. Warm blankets provided, HOB elevated, call light in reach.
--- NOTE | 2021-03-03 18:29 | NUR ---
PATIENT TO EDGE OF BED TO SIT UP, TOLERATED WELL. IN ROOM. VITALS CHARTED. CALL LIGHT IN REACH. NO FURTHER NEEDS AT THIS TIME.
--- NOTE | 2021-03-03 18:51 | NUR ---
Pt requests PRN tylenol for 4/10 pain to RUQ. Lap site to umbilicus small amount drainage, steri strips wet and come off, new applied and 2x2 gauze applied for reinforcement. Pt ambulates to BR with SBA. Gown changed. IVF infusing WNL. VSS, A+O.
--- NOTE | 2021-03-03 19:25 | NUR ---
VS COMPLETE. PT STATED SHE HAD JUST GOTTEN UP TO BATHROOM, LELA WELL. STATED SHE IS LESS SLEEPY THAN WHEN SHE ARRIVED TO FLOOR. LAP SITES UNCHANGED FROM ASSESSMENT PRIOR TO 7PM, COMPLETED BY KRISTI SIMS. DAMARIS DRAIN RUQ WITH SERSANGUINEOUS DRAINAGE
--- NOTE | 2021-03-03 20:20 | NUR ---
PT CALLED PRIOR TO THIS TIME, FOUND HER SITTING ON THE EDGE OF BED, SAID SHE WAS BLEEDING. ASKED WHAT SHE WAS GOING TO DO, SHE SAID GO TO THE BATHROOM. EDUCATED PT THAT WE WOULD WANT TO WALK WITH HER TO BATHROOM AT THIS TIME, FOR HER SAFETY. SHE LAID DOWN, THE UMBILICUS AREA, THE GAUZE WAS LIFTED. SHE SAID THAT THEY HAD JUST "CHANGED IT", BUT NO OBVIOUS BLEEDING. REINFORCED DRESSING. PT THEN AMBULATED TO BATHROOM, NEEDED REMINDERS TO TAKE THE IV POLE, WAS UNABLE TO VOID, BACK TO BED AFTER BED WAS CHANGED. SMALL AMOUNT BLEEDING ON THE BED. REPORTED TO PT RN, WELL PAIN MED REQUESTED.
--- NOTE | 2021-03-03 20:34 | NUR ---
PATIENT CALLED AND ABD PAIN/RUQ PAIN FROM SURGICAL SITES HAS INCREASED TO 6/10 AND THE TYLENOL THAT THE PATIENT HAD TAKEN FOR A BACK ACHE IS NOT WORKING. 2MG PO DILAUDID GIVEN AND 30MG IV TORADOL SIVP GIVEN. PATIENT RESTING BACK IN BED. PM ASSESSMENT COMPLETE. ALL 3 LAP SITES HAVE STERISTRIPS IN PLACE WITH SOME DRIED BLOOD ON IT, A LITTLE MOIST AT THE UMBILICAL SITE. RIGHT ABD DAMARIS DRAINAGE SANGUINOUS, EMPTIED, AND TUBING STRIPPED. PATIENT SAYS SHE IS COLD AND WARM BLANKETS GIVEN AND ROOM TEMP TURNED UP. PATIENT HAS NO OTHER NEEDS AT THIS TIME CALL LIGHT IS IN REACH.
--- NOTE | 2021-03-03 21:51 | NUR ---
PATIENT SAYS HER ABD PAIN REMAINS THE SAME AND SHE IS NOW NAUSEATED. 8MG ZOFRAN SIVP AND 4MG MORPHINE SIVP GIVEN. PATIENT UP TO THE BATHROOM AND BACK TO BED 1PSBA. INFORMED PATIENT THE BED ALARM WAS BEING TURNED ON SINCE SHE HAS HAD 2 NARCOTICS NOW AND WE WANT TO MAKE SURE SHE REMAINS SAFE. PATIENT VERBALIZED UNDERSTANDING. CALL LIGHT IS IN PLACE, LIGHTS TURNED DOWN, ICE WATER REFILLED, AND BED ALARM ON.
--- NOTE | 2021-03-03 22:20 | NUR ---
PATIENT CALLED AND SAID HER RIGHT ARM AT THE IV SITE WAS ITCHING. KRISTI JORGE RESPONDED, TOOK OF EXCESS TAPE, APPLIED A COOL MOIST CLOTH, THEN PUT ON SOME LOTION. PATIENT SAYS HER ARM FEELS FINE NOW. CALL LIGHT IS IN REACH.
--- NOTE | 2021-03-03 22:51 | NUR ---
CHECKED IN ON PATIENT AND SHE SAYS HER NAUSEA AND PAIN ARE BOTH GONE AT THIS TIME. PATIENT HAD NO OTHER CARE NEEDS AT THIS TIME AND WANTS TO TRY AND GET SOME SLEEP. LIGHTS ARE DOWN AND CALL LIGHT IS IN REACH.
--- NOTE | 2021-03-03 23:23 | NUR ---
PATIENT RESTING QUIETLY IN SEMI-FOWLERS POSITION, EYES CLOSED, RESPIRATIONS ARE REGULAR AND EVEN, AND CALL LIGHT IS IN REACH. NO NOTED CARE NEEDS AT THIS TIME.
--- NOTE | 2021-03-04 01:38 | NUR ---
PATIENT CALLED TO USE THE RESTROOM. 1PSBA TO THE RESTEROOM AND BACK TO BED. 1ST AM ASSESSMENT COMPLETE. BOWEL TONES STILL VERY HYPOACTIVE THROUGHOUT. PATIENT DENIES NAUSEA AND PAIN AND THIS TIME. PREETI EMPTIED AND TUBING STRIPPED. VS ARE STABLE AND PATIENT WIDE AWAKE NOW. PATIENT DENIES ANY OTHER CARE NEEDS AT THIS TIME. CALL LIGHT IS IN REACH.
--- NOTE | 2021-03-04 03:42 | NUR ---
PATIENT RESTING QUIETLY IN SEMI-FOWLERS POSITION, EYES CLOSED, RESPIRATIONS ARE REGULAR AND EVEN, SCD'S ON, AND CALL LIGHT IS IN REACH.
--- NOTE | 2021-03-04 05:02 | NUR ---
CALL LIGHT ANSWERED. SBA TO RESTROOM. IVF INFUSING WNL.
--- NOTE | 2021-03-04 06:01 | NUR ---
PATIENT HAS DONE WELL THROUGH THE NIGHT. DAMARIS DRAIN IS DRAINING MINIMAL SANGUINOUS DRAINAGE. BOWEL TONES STILL VERY HYPOACTIVE. PATIENT'S PAIN WAS NOT CONTROLLED WITH PO DILAUDID, BUT HAS REMAINED RELIEVED SINCE 10PM WITH ONE DOSE OF 4MG SIVP MORPHINE WITH 8MG PREMEDICATED ZOFRAN. PATIENT DENIES NAUSEA AND PAIN STILL AT THIS TIME. PATIENT HS BEEN AMBULATING TO THE BATHROOM THROUGH THE NIGHT WITH 1PSBA AND DOES WELL. ALL LAP SITE REMAIN COVERED WITH STERISTRIPS AND ARE WELL APPROXIMATED, DAMARIS DRAIN DRESSING CDI. PATIENT SITTING UP ON THE BEDSIDE AT THIS TIME AND HAS NO OTHER REQUESTS. BREAKFAST ORDER TAKEN.
--- NOTE | 2021-03-04 07:20 | NUR ---
Report received from Goran BERRY. Pt resting in bed with eyes closed, even and unlabored respirations, no needs identified. Will continue plan of care.
--- NOTE | 2021-03-04 07:43 | EKG ---
[facility] [address] [facility] [place], [place] [address] Signed Normal sinus rhythm Nonspecific ST abnormality Abnormal ECG When compared with ECG of 05-AUG-2020 12:57, No significant change was found Confirmed by NICHOL GLASS MD ([id number]) on 03/04/2021 7:42:47 AM Electronically Signed By: NICHOL GLASS MD 03/04/21 0743 PATIENT NAME: FÁTIMA CHATMAN Electrocardiogram DATE OF : 48 PHYSICIAN: NICHOL GLASS MD REPORT #: [id number] REPORT IS CONFIDENTIAL AND NOT TO BE RELEASED WITHOUT AUTHORIZATION
--- NOTE | 2021-03-04 08:30 | NUR ---
Scheduled medications administered, PRN tylenol provided, pt sitting up to chair and finished with breakfast. VSS, A+O. Lap sites x3 WNL, PREETI drain WNL. Discussed plan of care, pt agreeable. Call light in reach
--- NOTE | 2021-03-04 10:26 | NUR ---
PATIENT UP TO BATHROOM AND BACK TO BED, 1PA. VITALS AND I&O'S CHARTED. LINENS CHANGED EARLIER. CALL LIGHT IN REACH. NO FURTHER NEEDS AT THIS TIME.
--- NOTE | 2021-03-04 11:40 | NUR ---
Spoke with Josephine. States she is able to get up and walk, but is painful. States she is painful when walks and Dilauded did not help. This is surprising. She is sitting at bedside eating grilled cheese and [place] fried Thinks she will be able to dc to home today, awaiting visit from Dr. Tellez. Let her know I will tell her nurse about her pain. Spoke with Tash and brandie states pt did not take Dilauded and refused it. She then gave her Tylenol.
--- NOTE | 2021-03-04 13:38 | NUR ---
PT IS ALERT, ORIENTED AND SUPPORTED BY HER AT . 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 PT DID SAY PAIN IS A 4, WILL PASS ON TO KRISTI SIMS. PT PLANS TO DC TODAY, BUT SAID SHE NEEDS TO SEE DR RICHARDS BEFORE THAT CAN HAPPEN. GAVE BLESSING, WILL FOLLOW NEEDED
--- NOTE | 2021-03-04 14:10 | NUR ---
PT AWAKE IN ROOM. PT AMBULATED THREE LAPS IN THE SANZ WITH . CALL LIGHT WITHIN REACH. NO FURTHER NEEDS AT THIS TIME.
[2021-03-04] MEDS ORDERED: ACETAMINOPHEN500 MG PO (14:25)
--- NOTE | 2021-03-04 14:44 | OR ---
[facility] [address], [place] [address] Signed DATE OF OPERATION: 03/03/2021 SURGEON: Jacobo Richards MD PREOPERATIVE DIAGNOSES: 1. Morbid obesity. 2. Acute calculous cholecystitis. POSTOPERATIVE DIAGNOSES: 1. Morbid obesity. 2. Acute calculous cholecystitis. PROCEDURE PERFORMED: Laparoscopic cholecystectomy with intraoperative cholangiogram, prolonged complicated difficult. ANESTHESIA: General endotracheal, Macarena Mendez CRNA and Kasi Kelley CRNA. Local 20 mL of 0.25% Marcaine with epinephrine. INDICATION: This morbidly obese 70-year-old white woman presented to the emergency room after three days of right upper abdominal pain. She is a patient of Dr. Say Khan of [place]. She on evaluation was found to have rather significant tenderness in the right upper abdomen. CT scan and ultrasound were performed, confirming significant findings of acute cholecystitis with thickened gallbladder wall and so on. Notably, her liver enzymes were found to be elevated. Her bilirubin today is 1.9, AST 237, ALT 194, alkaline phosphatase only 85. Her white count has improved from time of admission down from 19.3 to 15.4 now. She has been fluid resuscitated, given intravenous antibiotics, and now is to undergo cholecystectomy preferably by laparoscopic approach. The risks of bleeding, infection, bile duct injury, need for open procedure and other unforeseen complications including possible need for common duct exploration were reviewed in detail. She understands and wished to proceed. FINDINGS: The gallbladder was quite markedly acutely and chronically inflamed. It was very thickened. There were dense omental adhesions to it. Initially, it was thought unlikely to be resectable by laparoscopic approach, but with meticulous care in fair amount of patients, it was able to be done laparoscopically. Cholangiogram was performed showing no sign of obstruction of the duct or anything of that sort. The Electronically Signed By: JACOBO RICHARDS MD 03/04/21 1444 PATIENT NAME: FÁTIMA CHATMAN OPERATIVE REPORT DATE OF : 48 REPORT #: [id number] PHYSICIAN: JACOBO RICHARDS MD PCP: SAY KHAN MD REPORT IS CONFIDENTIAL AND NOT TO BE RELEASED WITHOUT AUTHORIZATION [facility] [address], [place] [address] Signed operation was prolonged, complicated, and difficult. A drain was placed. DESCRIPTION OF PROCEDURE: The patient was brought to the operating room, given a general endotracheal anesthetic. The abdomen was prepared with a chlorhexidine solution and an enormously large abdominal pannus was noted. Infraumbilical incision was made and using an open Mandy cannula technique, the abdomen was entered and pneumoperitoneum was achieved to a level of 14 mmHg of carbon dioxide gas. Intraabdominal inspection showed no sign of ascites, recurrent ascites or carcinomatosis. The liver was obscured from view. It is notable that upon relaxation of the patient at time of the anesthetic induction, the gallbladder could be palpable as a mass in the right upper abdomen. Three additional trocars were placed in usual configuration in the subxiphoid, right midclavicular, and right anterior axillary line. With various manipulations the densely adherent omentum could be freed from the gallbladder, which was quite markedly distended, firm and inflamed. A laparoscopic trocar decompression device was used to drain light green bilious fluid from the gallbladder. This allowed for good decompression of the gallbladder, but the gallbladder wall was quite markedly thickened and rubbery. It was able to be grasped and elevated. The infundibulum was then quite impressive in its extent of inflammation and distorted anatomy but meticulous care and stain on the infundibulum of the gallbladder. The cystic duct could be dissected free ultimately allowing for good delineation of the duct from surrounding structures. A clip was applied across the gallbladder cystic duct junction and a transverse choledochotomy made in the cystic duct. There was no significant egress of bilious fluid from the cystic duct. It was milked in a retrograde fashion showing a bit of debris, but not much. Using an Overton-type cholangiocatheter, intraoperative cholangiography was undertaken. This showed free flow of contrast in the biliary tree with prompt emptying into the duodenum. There was no sign of filling defect. The more proximal common hepatic duct was somewhat obscured and not as well defined, but clearly out of the area of previous dissection. The cystic duct was ultimately triply clipped and divided. The gallbladder was then dissected free in a retrograde fashion. There was a large lymph node in the infundibular area, which was left in situ. Ultimately, gallbladder was dissected free in a retrograde fashion, although entry into the gallbladder was noted and spillage of some small boulder like stones noted. The gallbladder was ultimately excised, placed in the Endobag and extracted through the infraumbilical port site. Reinspection of subhepatic space showed multiple gallstones that had been spilled, all of them completely collected up. Irrigation was undertaken copiously and there were no residual stones. The bed of the gallbladder was secured with electrocautery throughout the course of dissection and additionally so at this point. Some Tisseel fibrin glue was then applied to the raw surface of the liver. There was no sign of bile leak or other problem. Through right-sided trocar site, a 7 mm flat David drain was placed in the subhepatic space and attached to bulb suction. Electronically Signed By: JACOBO RICHARDS MD 03/04/21 1444 PATIENT NAME: FÁTIMA CHATMAN OPERATIVE REPORT DATE OF : 48 REPORT #: [id number] PHYSICIAN: JACOBO RICHARDS MD PCP: SAY KHAN MD REPORT IS CONFIDENTIAL AND NOT TO BE RELEASED WITHOUT AUTHORIZATION [address] [address] Signed There was no sign of bile leak, bleeding, or other problems. Excess irrigation fluid was suctioned free. The drain was secured to the skin with a nylon suture. The trocars were removed and the infraumbilical incision ultimately closed with interrupted 0 Vicryl suture. A 20 mL of 0.25% Marcaine with epinephrine was injected locally. The skin was closed with interrupted 3-0 Vicryl and Steri-Strips were applied. She was ultimately extubated and transferred to the recovery room in good condition having suffered no complications. Sponge, needle, and instruments counts reported as correct x3. The operation was rather prolonged complicated and difficult extending now more than 2 hours, which in many cases would be less than 40 minutes. MD ANA Butler/ERASMO /[id number] cc: MD Debora Townsend MD Copies: SAY KHAN MD, KELLY DEAN MD ~ Electronically Signed By: JACOBO RICHARDS MD 03/04/21 1444 PATIENT NAME: FÁTIMA CHATMAN OPERATIVE REPORT DATE OF : 48 REPORT #: [id number] PHYSICIAN: JACOBO RICHARDS MD PCP: SAY KHAN MD REPORT IS CONFIDENTIAL AND NOT TO BE RELEASED WITHOUT AUTHORIZATION
--- NOTE | 2021-03-04 14:44 | HP ---
[facility] [address] [place], [place] [address] Signed ADMISSION DATE: 03/02/2021 REASON FOR ADMISSION: Acute calculous cholecystitis. HISTORY OF PRESENT ILLNESS: This 70-year-old obese white woman presents to the emergency room after three days of increasing right upper abdominal pain. The patient has a distant history of colonic perforation on colonoscopy in August of this year by Dr. Sifuentes, which was related to hot polypectomy of the sigmoid colon polyp. She was treated without operative intervention. The patient thought given her symptoms that she may be having a "bowel obstruction." Evaluation is undertaken by Dr. Alberts, which included a gallbladder ultrasound as well as a CT scan of the abdomen. This did in fact confirm a thickened gallbladder wall as well as gallstone. There is no evidence of bowel obstruction. Incidentally noted, however, were two small stable bilateral adrenal nodules. She is admitted for further evaluation and care. At present since admission with IV antibiotics, IV fluids and n.p.o. status, she does not feel worsened. She was noted to have had a rather significant right upper abdominal tenderness at the emergency room evaluation. MEDICAL HISTORY: Includes hypertension, seasonal allergies, and lumbar stenosis at L4-L5 and rnv-sgduwog-hszqwxmmy diabetes mellitus. MEDICATIONS: Her home medications include multivitamin, omeprazole, Tylenol, cetirizine (Zyrtec), Methyl Salicylate-Menthol (Salonpas pain relief spray), fenofibrate one tablet daily, losartan one p.o. daily and DSS. ALLERGIES: Her allergies are extensive including alendronate, aspartame, codeine, erythromycin base, hydrocodone, hydroxyzine, statins, gemfibrozil, lisinopril, and ezetimibe. REVIEW OF SYSTEMS: She denies any chest pain or shortness of breath. She has had no dysphagia. No hematemesis. No blood per rectum. Her pain is localized to the right upper abdomen, though she does have some right subscapular pain as well. SOCIAL HISTORY: Electronically Signed By: JACOBO RICHARDS MD 03/04/21 1444 PATIENT NAME: FÁTIMA CHATMAN HISTORY AND PHYSICAL DATE OF : 48 REPORT #: [id number] PHYSICIAN: JACOBO RICHARDS MD PCP: SAY KHAN MD REPORT IS CONFIDENTIAL AND NOT TO BE RELEASED WITHOUT AUTHORIZATION [place] [address] Signed The patient is . Her primary provider is Dr. Say Khan. The patient lives in [facility]. She is a retired nurse from many years ago. PHYSICAL EXAMINATION: GENERAL: A relatively short and obese white woman, who does not look to be toxic. VITAL SIGNS: Temperature is currently 98.7, pulse 96, blood pressure 142/81, O2 saturation 98% on room air. COVID serology is negative at the time of admission, it is noted. NECK: Shows no thyromegaly or cervical adenopathy. Trachea is midline. She has mild dryness of her mucous membranes on oral exam. CHEST: Clear. HEART: Regular without murmur. ABDOMEN: Obese, but generally soft. She has market tenderness in the right subcostal area. The tenderness is enough that I cannot fully define whether there is a mass or not. She does not appear to have ascites. She does have a thick abdominal wall pannus. EXTREMITIES: Show no clubbing, cyanosis, or edema. She does not currently have sequential compression device stockings in place. LABORATORY DATA: Lab studies through the emergency room showed a white count of 19.3, hematocrit 46.6, platelets 276,000. Chem profile was normal. Liver enzymes were normal. Alkaline phosphatase 69, alk ALT 89, AST 93, bilirubin 1.1, magnesium 2.1. The plain abdominal x-ray, ultrasound, and CT scan was reviewed by me in detail. Findings included a gallstone with gallbladder wall thickening and pericholecystic fluid and hepatomegaly and fatty liver. ASSESSMENT: The patient has acute calculous cholecystitis. From my discussion with her, it sounds as though she has had episodic symptoms of the similar type for quite a long time, only worsening in the past three days, and now essentially intolerable. She certainly has marked tenderness in the right upper quadrant consistent with acute calculous cholecystitis. She has no ascites. I have recommended cholecystectomy, preferably by a laparoscopic approach. The risks of bleeding, infection, bile duct injury, need for open procedure and importantly, failure to provide a laparoscopic cholecystectomy. If that were the case, an open cholecystectomy would be recommended. Review of her CT scan shows the right adrenal nodule was 2.9 cm in size and the left 1.4 cm in size. She does not have stigmata of pheochromocytoma or other functioning neuroendocrine type tumor. Electronically Signed By: JACOBO RICHARDS MD 03/04/21 1444 PATIENT NAME: FÁTIMA CHATMAN HISTORY AND PHYSICAL DATE OF : 48 REPORT #: [id number] PHYSICIAN: JACOBO RICHARDS MD PCP: SAY KHAN MD REPORT IS CONFIDENTIAL AND NOT TO BE RELEASED WITHOUT AUTHORIZATION [address] [address] Signed Given the acuity of her situation, I would recommend cholecystectomy promptly, likely tomorrow. We will focus on fluid resuscitation, IV antibiotic administration, and pain control at this point. Special risks of operation in her case were reviewed in detail. She will additionally need an EKG anticipating operation tomorrow. MD ANA Butler/ERASMO /[id number] cc: MD Oliver Townsend MD Kelly Dean Pridgen, MD Copies: SAY KHAN MD, ANDREW L MD PRIDGEN, KELLY DEAN MD ~ Electronically Signed By: JACOBO RICHARDS MD 03/04/21 1444 PATIENT NAME: FÁTIMA CHATMAN HISTORY AND PHYSICAL DATE OF : 48 REPORT #: [id number] PHYSICIAN: JACOBO RICHARDS MD PCP: SAY KHAN MD REPORT IS CONFIDENTIAL AND NOT TO BE RELEASED WITHOUT AUTHORIZATION
--- NOTE | 2021-03-05 00:22 | DS ---
[facility] [address] [place], [place] [address] Signed ADMISSION DATE: 03/02/2021 DISCHARGE DATE: 03/04/2021 REASON FOR ADMISSION: Acute calculous cholecystitis. HISTORY OF PRESENT ILLNESS: This quite morbidly obese 70-year-old white woman (BMI 40.8, 101.1 kg, 5 feet 2 inches tall), presented to the emergency room in the morning of March 02, evaluated by Dr. Alberts. She was found to have exquisite tenderness in the right upper abdomen and evaluation including CT scan, as well as a gallbladder ultrasound, which showed marked thickening in the gallbladder with multiple stones. She was admitted for further evaluation and care. PHYSICAL EXAMINATION: GENERAL: Showed a morbidly obese white woman, who did not look systemically toxic. VITAL SIGNS: On presentation, vital signs showed her blood pressure of 132/58, pulse of 85, and temperature 98.1. NECK: Showed no thyromegaly or cervical adenopathy. Trachea was midline. CHEST: Clear. HEART: Regular, without murmur. ABDOMEN: Quite massively obese with an extremely large abdominal pannus. EXTREMITIES: Show no clubbing, cyanosis, or edema. LAB STUDIES: At admission showed white count of 19.3 and hematocrit 46.6. Chem-profile showed normal electrolytes and creatinine, but bilirubin of 1.1, alkaline phosphatase 93, and ALT 89. Her lipase was noted to be 60. HOSPITAL COURSE: She was admitted, given intravenous fluid resuscitation, IV antibiotic Ancef, and parenteral pain medication. The following morning, March 03, she was noted to have elevated bilirubin of 1.9, AST of 237, ALT of 184, and persistent tenderness in right upper abdomen. She was taken for operation, where she underwent laparoscopic cholecystectomy. Of note, upon anesthesia and with abdominal wall relaxation, a firm palpable mass could be noted in the right upper quadrant consistent with acute calculous cholecystitis as previously suspected. On laparoscopic evaluation, she had a markedly inflamed, distended, chronically and Electronically Signed By: JACOBO RICHARDS MD 03/05/21 0022 PATIENT NAME: FÁTIMA CHATMAN DISCHARGE SUMMARY DATE OF : 48 REPORT #: [id number] PHYSICIAN: JACOBO RICHARDS MD PCP: SAY KHAN MD REPORT IS CONFIDENTIAL AND NOT TO BE RELEASED WITHOUT AUTHORIZATION [facility] [address] [place], [place] [address] Signed acutely inflamed gallbladder with dense omental adhesions. Decompression was undertaken showing light green bilious fluid. Despite my initial impression, with the persistence and care and meticulous dissection, laparoscopic cholecystectomy ultimately could be performed. Cholangiogram performed operation showed no sign of filling defect or anything to account for elevated liver enzymes necessarily. The cholecystectomy went without problem. Given her advanced findings, a drain was placed in subhepatic space. Postoperatively, she did quite remarkably well. Her liver enzymes improved on first postoperative day with bilirubin now 0.6, AST 65, ALT 112, and persistently normal alkaline phosphatase of 79. Additionally, her white count was diminished to 11.9 and hematocrit was 36.2. By the time of discharge, she is ambulating well, tolerating a regular diet as well as oral analgesic, Tylenol and Motrin as needed. She is advised for discharge to avoid lifting more than 20 pounds for the next two weeks. She should walk on a daily basis. She will leave [facility] in place. The drain was placed at operation was removed without sign of bile leak or other problem. FOLLOWUP PLAN: She will return to see me in approximately 4 weeks. Arrangements will be made for that. DISCHARGE DIAGNOSES: 1. Acute calculous cholecystitis (very advanced). 2. Status post laparoscopic cholecystectomy with intraoperative cholangiogram (prolonged, complicated, difficult). 3. Morbid obesity, BMI 40.8. 4. Hypertension. 5. Multiple allergies including statins, HMG-CoA reductase inhibitor, lisinopril, and others. Jacobo Richards MD JM/MODL /[id number] Electronically Signed By: JACOBO RICHARDS MD 03/05/21 0022 PATIENT NAME: FÁTIMA CHATMAN DISCHARGE SUMMARY DATE OF : 48 REPORT #: [id number] PHYSICIAN: JACOBO RICHARDS MD PCP: SAY KHAN MD REPORT IS CONFIDENTIAL AND NOT TO BE RELEASED WITHOUT AUTHORIZATION [facility] [address] [place] [id number] Signed cc: Say Khan MD Copies: SAY KHAN MD ~ Electronically Signed By: JACOBO RICHARDS MD 03/05/21 0022 PATIENT NAME: FÁTIMA CHATMAN DISCHARGE SUMMARY DATE OF : 48 REPORT #: [id number] PHYSICIAN: JACOBO RICHARDS MD PCP: SAY KHAN MD REPORT IS CONFIDENTIAL AND NOT TO BE RELEASED WITHOUT AUTHORIZATION
--- NOTE | 2021-03-05 12:41 | PATH ---
[facility] [address] [facility] [place], [place] [address] Signed SPECIMEN(S): A GALLBLADDER WITH STONES SPECIMEN SOURCE: A. GALLBLADDER WITH STONES CLINICAL HISTORY: Acute calculus cholecystitis. FINAL PATHOLOGIC DIAGNOSIS: Gallbladder, cholecystectomy: - Acute and chronic calculus cholecystitis. BRP:cml:C2NR MICROSCOPIC EXAMINATION: Histologic sections of all submitted blocks are examined by light microscopy. These findings, together with the gross examination, support the pathologic diagnosis. GROSS DESCRIPTION: The specimen, labeled "[place], gallbladder with stones," is received in formalin and consists of Specimen: Previously incised gallbladder. Dimensions: Upon reconstruction, 13.5 x 4.7 x 4.5 cm. Serosa: Mostly fat covered, [place] to brown, with focal areas of johnson exudate. Cystic Duct: 0.4 cm in diameter, occluded by a hard calculus, and the margin is inked blue. Calculi: The specimen container and gallbladder contains multiple hard, yellow to brown, multifaceted to oval calculi from 0.4 up to 1.3 cm in greatest dimension. Mucosa: [place] to dark red, velvety to somewhat trabecular with adherent johnson exudate. Wall thickness: Dark red discolored and 0.2 up to 0.4 cm. Lymph node: No pericystic lymph nodes are grossly identified. Additional: None. System Safety Engineer sections are submitted in cassette (A1). AI (under the direct supervision of a pathologist) The Gross Description was prepared using a voice recognition system. The report was reviewed for accuracy; however, sound-alike word errors, addition and/or deletions may occur. If there is any question about this report, please contact Client Services. PATIENT NAME: FÁTIMA CHATMAN PATHOLOGY DATE OF : 48 REPORT #: [id number] PHYSICIAN: LANCE BALDERAS PCP: SAY JIM MD REPORT IS CONFIDENTIAL AND NOT TO BE RELEASED WITHOUT AUTHORIZATION [facility] [address] [place], [place] [address] Signed PERFORMING LABORATORY: The technical component was performed by [employer], [address] [place] [address] (Director Of Music: Erika Domínguez MD; CLIA# [id number]). Professional [facility] [place], [address] [address] (CLIA# [id number]). Diagnostician: Antonio Perales MD Pathologist Electronically Signed 03/05/2021 Copies: ~ PATIENT NAME: FÁTIMA CHATMAN PATHOLOGY DATE OF : 48 REPORT #: [id number] PHYSICIAN: LANCE BALDERAS PCP: SAY JIM MD REPORT IS CONFIDENTIAL AND NOT TO BE RELEASED WITHOUT AUTHORIZATION
== END 2021-03-04 15:00 | disposition home or self-care (01) ==
LOC: ED 07:53 → MS 07:55 → ED 13:12 → MS 13:12
PROVIDERS: ADMIT Surgery; ATTEND Surgery
PROC: BF13YZZ Fluoroscopy of Gallbladder and Bile Ducts using Other Contrast (ICD-10-PCS; 2021-03-03)
PROC: 0FT44ZZ Resection of Gallbladder, Percutaneous Endoscopic Approach (ICD-10-PCS; principal; 2021-03-03 13:00)
DX: K80.12 Calculus of gallbladder with acute and chronic cholecystitis without obstruction (principal); E66.01 Morbid (severe) obesity due to excess calories; I10 Essential (primary) hypertension; E11.9 Type 2 diabetes mellitus without complications; Z20.822 Contact with and (suspected) exposure to COVID-19; Z68.41 Body mass index [BMI] 40.0-44.9, adult
CPT/HCPCS: 00790; 74018; 74177; 74300; 76705; 80053; 81001; 83690; 83735; 85007; 85025; 93005; 93010; 96372; 96375; 96376; 99285-25; C9803; G0378; J0131; J0330; J0690; J1100; J1644; J1885; J2001; J2250; J2270; J2405; J2704; J2765; J7030; J7121; Q9967; U0003

== ENCOUNTER 2024-10-17 09:10 | Day surgery (SDC) | payer MEDICARE ==
[~2024-10-17] VITALS: Ht 157.5 cm; Wt 101.0 kg
[~2024-10-17 09:10] MED LIST changes: +ACETAMINOPHEN500 M1 PO; +ACETAMINOPHEN500 MG PO; +AMLODIPINE BES2.5 MG PO; +BENEFIBER PO; +CALCIUM + VITA1 EACH PO; +CEFAZOLIN SODIUM 2 GM/20 ML SYR IV SCH; +COLACE100 MG PO; +DILAUDID2 MG PO; +FLOVENT HFA12 G1 INH; +GAVISCON 80-141 EACH PO; +HAIR, SKIN AND1 EAC1 PO; +HEParin SOD (PORCINE) 5,000 UNIT/ML SDV SUB-Q SCH; +HYDROMORPHONE HC2 MG PO; +IBLOOD GLUCOSE TEST STRIP 1 EA TEST VI PRN; +KETOROLAC15 MG/1 M1 IV; +LACTATED RINGER'S 1,000 ML IV SCH; +LIDOCAINE HCL 1% 5 ML SDV INJ ONE; +MOMETASONE FURO15 G1 TOP; +MOTRIN IB200 MG PO; +SENNA LAX8.6 MG PO; +VENTOLIN HFA18 GM INH; +XARELTO10 MG PO
[2024-10-17 09:26] VITALS: BP 154/89
[2024-10-17] MEDS ORDERED: KETOROLAC TROMETHAMINE 30 MG/ML VIAL ONE (09:31)
[2024-10-17] MEDS ORDERED: LIDOCAINE HCL 2% 5 ML SDV ONE (09:31)
[2024-10-17] MEDS ORDERED: propofoL 200 MG/20 ML VIAL ONE (09:31)
[2024-10-17] MEDS ORDERED: DEXAMETHASONE SOD PHOS 4 MG/ML VIAL ONE (09:31)
[2024-10-17] MEDS ORDERED: fentaNYL citrate 100 MCG/2 ML VIAL ONE (09:31)
[2024-10-17] MEDS ORDERED: ondansetron HCL 4 MG/2 ML VIAL ONE (09:31)
[2024-10-17] MEDS ORDERED: ACETAMINOPHEN 1,000 MG/100 ML VIAL ONE (10:14)
[2024-10-17] MEDS ORDERED: MORPHINE SULFATE 10 MG/ML VIAL ONE (10:18)
[2024-10-17] MEDS ORDERED: IBUPROFEN600 MG PO (11:38)
[2024-10-17] MEDS ORDERED: OXYCODON-ACETA1 EAC2 PO (11:38)
[2024-10-17] MEDS ORDERED: ACETAMINOPHEN500 MG PO (11:38)
[2024-10-17] MEDS ORDERED: OXYCODONE/APAP 7.5/325 TAB PO PRN (11:45)
[2024-10-17] MEDS ORDERED: LACTATED RINGER'S 1,000 ML IV SCH (11:45)
[2024-10-17] MEDS ORDERED: ondansetron HCL 4 MG/2 ML VIAL IV PRN ×2 (11:45→12:00)
[2024-10-17] MEDS ORDERED: NALOXONE HCL 0.4 MG SYR IV PRN ×2 (11:45→12:00)
[2024-10-17] MEDS ORDERED: IBUPROFEN 600 MG TAB PO PRN (11:45)
[2024-10-17] MEDS ORDERED: ACETAMINOPHEN 500 MG TAB PO PRN (11:45)
[2024-10-17 11:55] VITALS: BP 152/76
[2024-10-17] MEDS ORDERED: MORPHINE SULFATE 10 MG/ML VIAL IV PRN (12:00)
[2024-10-17] MEDS ORDERED: MEPERIDINE HCL 25 MG/1 ML VIAL IV PRN (12:00)
[2024-10-17 13:01] VITALS: BP 149/66
[2024-10-17] MEDS ORDERED: SEVOFLURANE 250 ML BTL INH ONE (13:16)
[2024-10-17 14:04] VITALS: BP 143/74
--- NOTE | 2024-10-19 11:32 | OR ---
[facility] [address], [place] [address] Signed DATE OF OPERATION: 10/17/2024 SURGEON: Jacobo Richards MD PREOPERATIVE DIAGNOSES: 1. Bilateral breast cancer; right infiltrating ductal carcinoma, stage I and left mucinous carcinoma, stage I. 2. Positive margin on left inferior breast partial mastectomy site. POSTOPERATIVE DIAGNOSES: 1. Bilateral breast cancer; right infiltrating ductal carcinoma, stage I and left mucinous carcinoma, stage I. 2. Positive margin on left inferior breast partial mastectomy site. PROCEDURE: Left partial mastectomy/re-excision of inferior central breast. ANESTHESIA: General LMA; Xu Toribio CRNA. INDICATION: This 74-year-old white woman is a patient of Dr. Ashley Wallace and was treated by [facility] for a nonpalpable bilateral breast cancer. The right sided cancers in the upper outer aspect for which image (ROWAN allocation analyst) partial mastectomy and sentinel lymph node biopsy was undertaken showing negative margins and negative metastatic disease regarding lymph nodes. Concurrent excision of the left inferior central breast cancer and sentinel lymph node biopsies was undertaken showing no evidence of metastatic disease to the left axillary area (two lymph nodes negative), but a positive margin "anteriorly" in relation to the excision. The excision was in the medial central inferior breast through an inframammary incision. Since there is a positive margin and despite a mucinous carcinoma, which was generally favorable, re-excision has been offered and recommended. The risk of bleeding, infection, cosmetic deformity, and need for additional treatment was reviewed with her. She understands and wished to proceed. FINDINGS: Wide and complete excision of the biopsy cavity was undertaken including breast tissue that was "anterior" which would correspond to subdermal. Significant defect resulted and parenchymal reapproximation was undertaken to improve breast conformation. The Electronically Signed By: JACOBO RICHARDS MD 10/19/24 1132 PATIENT NAME: FÁTIMA CHATMAN OPERATIVE REPORT DATE OF : 48 REPORT #: [id number] PHYSICIAN: JACOBO RICHARDS MD PCP: ASHLEY WALLACE MD REPORT IS CONFIDENTIAL AND NOT TO BE RELEASED WITHOUT AUTHORIZATION [facility] [address], [place] [address] Signed excision cavity itself was with expected chronic inflammatory change related to healing. There was no palpable mass or suspicious findings otherwise. A small seroma of the left axilla was aspirated 5 mL in total incidentally as per patient request. DESCRIPTION OF PROCEDURE: The patient was brought to the operating room, given a general LMA type anesthetic. Preoperative antibiotic Ancef was given. Sequential compression device stockings were used and heparin subcutaneously administered. Palpation of the left axilla showed a small amount of residual seroma fluid as had been noted in the office. This was aspirated after application of alcohol wipe. 5 mL in total of fluid was removed. It was abner colored as would be expected. The left breast and axilla was prepared with a chlorhexidine solution and draped sterilely. Elliptical incision of the inframammary scar was undertaken and flaps developed superiorly allowing for wide resection of the excision site previously undertaken. Complete cavity excision was undertaken. Most superficial area of the excision was deep and the thickest anteriorly corresponding to the reported positive margin. Wide resection was undertaken. Hemostasis was assured with electrocautery. Mindy was used for additional hemostasis after application of sterile water and securing of any bleeding sites. Clips were applied to the excised cavity to guide further radiation therapy. The parenchyma was reapproximated with 2-0 Vicryl mobilizing superior and lateral breast pedicles. Complete closure was undertaken without residual cavity resulting. Skin was then closed with running subcuticular 3-0 Vicryl, Steri-Strips and Acticoat dressing was then applied. She was ultimately extubated and transferred to the recovery room in good condition having suffered no complications. Sponge, needle, and instrument counts reported as correct x3. Blood loss was less than 20 mL. MD ANA Butler/MODL /[id number] cc: MD Ashley Valencia MD Electronically Signed By: JACOBO RICHARDS MD 10/19/24 1132 PATIENT NAME: FÁTIMA CHATMAN OPERATIVE REPORT DATE OF : 48 REPORT #: [id number] PHYSICIAN: JACOBO RICHARDS MD PCP: ASHLEY WALLACE MD REPORT IS CONFIDENTIAL AND NOT TO BE RELEASED WITHOUT AUTHORIZATION [facility] [address] [place] [address] Signed Copies: CRISS JONES MD ~ Electronically Signed By: JACOBO RICHARDS MD 10/19/24 1132 PATIENT NAME: FÁTIMA CHATMAN OPERATIVE REPORT DATE OF : 48 REPORT #: [id number] PHYSICIAN: JACOBO RICHARDS MD PCP: ASHLEY WALLACE MD REPORT IS CONFIDENTIAL AND NOT TO BE RELEASED WITHOUT AUTHORIZATION
--- NOTE | 2024-10-23 16:07 | PATH ---
[facility] [address] [facility] [place], [place] [address] Signed SPECIMEN(S): A LEFT INFERIOR BREAST TISSUE SPECIMEN SOURCE: A. LEFT INFERIOR BREAST TISSUE CLINICAL HISTORY: Invasive mucinous adenocarcinoma left lower breast. FINAL PATHOLOGIC DIAGNOSIS: Left inferior breast tissue, resection - Morphologic features of previous biopsy site. - Negative for residual carcinoma. COMMENT: Patient history of invasive carcinoma is noted. Sections demonstrate benign breast tissue with areas showing fibroblastic histiocytic reaction consistent with previous biopsy site. No residual carcinoma identified in any of the sections. Immunohistochemical stain for cytokeratin AE1/AE3 is performed on blocks A4, A5 and A6 (with valid controls) and it is negative for infiltrative carcinoma. NA MICROSCOPIC EXAMINATION: Histologic sections of all submitted blocks are examined by light microscopy. These findings, together with the gross examination, support the pathologic diagnosis. GROSS DESCRIPTION: The specimen, labeled and designated "Demarco left inferior breast tissue," is received in formalin and consists of a 207 g additional margin of breast tissue. It displays a short suture, presumably superior and a long suture presumably lateral, consistent with new anterior superior and lateral margins. It is 11.5 cm medial to lateral, 4.5 cm superior to inferior and 10.4 cm anterior to deep. The anterior aspect is a 5.1 x 0.7 cm mayorga-johnson grossly unremarkable skin excision. It is inked as follows: Superior-blue Inferior/old margin-green Anterior-yellow Deep-black Medial-red PATIENT NAME: FÁTIMA CHATMAN PATHOLOGY DATE OF : 48 REPORT #: [id number] PHYSICIAN: LANCE PATHOLOGY PCP: ALAN WALLACE MD REPORT IS CONFIDENTIAL AND NOT TO BE RELEASED WITHOUT AUTHORIZATION [facility] [address] [place], [place] [address] Signed Lateral-orange It is sectioned from medial to lateral to 15 levels to reveal a 9.5 x 8.4 biopsy cavity, at the old margin within levels 4 through 13. Fat necrosis is noted centrally within levels 5 through 8, adjacent to the superior and anterior margins. Distance of fat necrosis to surgical margins: Anterior: 0.2 cm Deep: 10.1 cm Superior: 0.2 cm Inferior: 0.1 cm Medial: 3.1 cm Lateral: 4.6 cm Fly R[employer] sections are submitted in cassettes A1-A10. Cassette Summary: (A1) level one, most medial level, serially sectioned (A2-A3) level five, anterior/superior, bisected (A4) level six, anterior (A5-A6) level seven, anterior/superior, bisected (A7-A8) level eight, anterior superior, bisected (A9) level nine, anterior (A10) level 15, most lateral level, serially sectioned Time of collection: 10/17/2024, 10:53 AM. Time into formalin: 10/17/2024, 10:56 AM. Processor load time: 10/18/2024, 10 PM. Ischemic time: 3 minutes Total fixation time in formalin: 35 hours 4 minutes The ASCO/CAP guidelines related to HER2 and hormone receptor testing in breast specimens have been met and the specimen has been placed in formalin within one hour and fixed in 10% neutral buffered formalin for 6 to 72 hours. [place] (under the direct supervision of a pathologist) The Gross Description was prepared using a voice recognition system. The report was reviewed for accuracy; however, sound-alike word errors, addition and/or deletions may occur. If there is any question about this report, please contact Client Services. ADDITIONAL NOTES: Immunohistochemical and/or in situ hybridization studies if performed in this case included appropriate positive controls that reacted as expected. This test was developed and its performance PATIENT NAME: FÁTIMA CHATMAN PATHOLOGY DATE OF : 48 REPORT #: [id number] PHYSICIAN: LANCE BALDERAS PCP: ALAN WALLACE MD REPORT IS CONFIDENTIAL AND NOT TO BE RELEASED WITHOUT AUTHORIZATION [facility] [address] [place] [id number] Signed characteristics determined by [facility]. It has not been cleared or approved by the U.S. Food and Drug Administration. The FDA has determined that such clearance or approval is not necessary. This test is used for clinical purposes. It should not be regarded as investigational or for research. [facility] is certified under the Clinical Laboratory Improvement Amendments of 1988 (CLIA) as qualified to perform high complexity clinical laboratory testing. PERFORMING LABORATORY: Technical preparation was performed by [facility], [id number] [place] [address] (CLIA#: [id number]). Professional interpretation was performed by [facility], [address] [place] [id number] (CLIA#: [id number]). Diagnostician: Lizzy Becerril MD Pathologist Electronically Signed 10/23/2024 Copies: ~ PATIENT NAME: FÁTIMA CHATMAN PATHOLOGY DATE OF : 48 REPORT #: [id number] PHYSICIAN: LANCE PATHOLOGY PCP: ALAN WALLACE MD REPORT IS CONFIDENTIAL AND NOT TO BE RELEASED WITHOUT AUTHORIZATION
== END 2024-10-17 14:30 | disposition home or self-care (01) ==
LOC: DS 09:10
PROVIDERS: ATTEND Surgery
PROC: 0HBU0ZZ Excision of Left Breast, Open Approach (ICD-10-PCS; principal; 2024-10-17 10:45)
DX: C50.112 Malignant neoplasm of central portion of left female breast (principal); C50.411 Malignant neoplasm of upper-outer quadrant of right female breast; I10 Essential (primary) hypertension; E66.01 Morbid (severe) obesity due to excess calories; Z68.41 Body mass index [BMI] 40.0-44.9, adult; Z79.83 Long term (current) use of bisphosphonates; Z79.899 Other long term (current) drug therapy; Z88.1 Allergy status to other antibiotic agents; Z88.5 Allergy status to narcotic agent; Z88.8 Allergy status to other drugs, medicaments and biological substances; Z91.048 Other nonmedicinal substance allergy status
CPT/HCPCS: 00400; 88307; 88342; J0131; J0690; J1100; J1644; J1885; J2003; J2270; J2405; J2704; J3010; J7121

== ENCOUNTER 2024-10-28 10:33 | Emergency (ER) | payer MEDICARE ==
[~2024-10-28] VITALS: Ht 157.5 cm; Wt 104.6 kg
[~2024-10-28 10:33] MED LIST changes: -CEFAZOLIN SODIUM 2 GM/20 ML SYR IV SCH; -HEParin SOD (PORCINE) 5,000 UNIT/ML SDV SUB-Q SCH; -IBLOOD GLUCOSE TEST STRIP 1 EA TEST VI PRN; +IBUPROFEN600 MG PO; -LACTATED RINGER'S 1,000 ML IV SCH; -LIDOCAINE HCL 1% 5 ML SDV INJ ONE; +OXYCODON-ACETA1 EAC2 PO
[2024-10-28 12:13] LABS: BASOPHILS 0.9 % (0.1-1.2); EOSINOPHILS 3.8 % (0.7-5.8); HEMATOCRIT 44.2 % (34.1-44.9); HEMOGLOBIN 14.1 g/dL (11.2-15.7); LYMPHOCYTES 24.9 % (19.3-51.7); MCH 28.3 PG (25.6-32.2); MCHC 31.9 g/dL (32.2-35.5); MCV 88.8 fL (79.4-94.8); NEUTROPHILS 61.5 % (34.0-71.1); PLATELET COUNT 222 K/uL (182-369); RBC 4.98 M/uL (3.93-5.22)
[2024-10-28 12:33] LABS: ALBUMIN 3.4 g/dL (3.4-5.0); ALBUMIN/GLOBULIN RATIO 0.92 (1.1-2.4); ANION GAP 13.7 (7-21); BILIRUBIN, TOTAL 0.3 mg/dL (0.2-1.0); BUN/CREATININE RATIO 16.32 (6.0-28.6); CALCIUM 9.1 mg/dL (8.5-10.1); CREATININE, SERUM 0.98 mg/dL (0.55-1.02); POTASSIUM 3.7 mmol/L (3.5-5.1); PROTEIN, TOTAL 7.1 g/dL (6.4-8.2)
[2024-10-28 12:59] VITALS: BP 131/69
== END 2024-10-28 12:58 | disposition home or self-care (01) ==
LOC: ED 10:33
PROVIDERS: Emergency Medicine
DX: M96.843 Postprocedural seroma of a musculoskeletal structure following other procedure (principal); I10 Essential (primary) hypertension; Z88.8 Allergy status to other drugs, medicaments and biological substances; Z88.5 Allergy status to narcotic agent; Z88.1 Allergy status to other antibiotic agents; Z79.1 Long term (current) use of non-steroidal anti-inflammatories (NSAID); Z79.899 Other long term (current) drug therapy
CPT/HCPCS: 36415; 80053; 85025; 87070; 87205; 99283